=== PATIENT | male | born 1960 | race Caucasian/White ===

== ENCOUNTER 2018-09-07 08:40 | Day surgery (SDC) | payer BC ==
[2018-09-04 08:42] VITALS: BMI 28.2
[~2018-09-07 08:40] MED LIST: LACTATED RINGERS 1,000 ML IV SCH; LIDOCAINE 1% 20 ML VIAL (10MG/ML) FOR IV START INTRADERMA PRN; MIDAZOLAM 2 MG/2 ML VIAL IV PRN
[2018-09-07 09:05] VITALS: RESP 16; TEMP 97.6
[2018-09-07] MEDS ORDERED: LIDOCAINE 1% INJ 10MG/ML (20 ML MDV) ONE (10:35)
[2018-09-07] MEDS ORDERED: PROPOFOL 10 MG/ML 20 ML VIAL IV ONE (10:35)
--- NOTE | 2018-09-07 11:16 | P.PCN ---
Date of Procedure: 09/07/18 Procedure(s) Performed: Procedure: Total colonoscopy. Preoperative diagnosis: Screening for neoplasia. Postoperative diagnosis: 1. Sigmoid diverticulosis with no evidence of acute diverticulitis or strictures. 2. No polyps or tumors seen. 3. Low-grade internal hemorrhoids not bleeding at the time of this exam. Preparation: HalfLytely prep. Sedation: Was provided by anesthesia. Brief clinical history: The patient is a 58-year-old male who is scheduled for this evaluation for screening for neoplasia. He had a prior exam in 2012. The patient has no abdominal complaints or anemia. He did have an episode of constipation and bleeding per rectum within the last month. Procedure: With the patient on his left lateral decubitus position and after informed consent and adequate sedation, the perianal area was inspected and it did not show any fissures or fistulas. There were no masses felt on digital rectal examination. The Olympus CFQ 160L video colonoscope was then inserted in the rectum in the usual fashion and advanced to the cecum. There were a few scattered diverticular orifices in the sigmoid but I saw no evidence of acute diverticulitis or strictures. I retroflexed the endoscope in the rectum before the endoscope was withdrawn. Low-grade internal hemorrhoids were noted but there was no evidence of bleeding. The patient tolerated the procedure well. Plan: The patient was reassured. Discussed dietary measures and local care for hemorrhoids. He will follow up with you as planned. Repeat colonoscopy in 10 years.
[2018-09-07 11:22] VITALS: BP 112/65; PULSE 59
--- NOTE | 2018-09-09 13:53 | CDI ---
Outpatient Documentation Clarification Form Date: 09/09/18 CDS/Land Title Examiner Name: Paulina Lopez Phone: If any questions, call Anitha Landon Stained Glass Window Designer at [phone] Patient Name: Ramón Ventura Admit Date: 09/07/18 Discharge Date: 09/07/18 ATTENTION: The [facility] Coding Staff appreciate your assistance in clarifying documentation. Please respond to the clarification below the line at the bottom and electronically sign. The [facility] Coding staff will review the response and follow-up if needed. Please note: Queries are made part of the Legal Health Record. If you have any questions, please contact the Stained Glass Window Designer. Dear Dr. Clark, What is the source of the rectal bleed? Multiple coding resources, that we are required to follow, state that the physician should identify a source and the ship boss may not assume. Thank you for your kind consideration. MTDD
== END 2018-09-07 11:47 | disposition home or self-care (01) ==
LOC: ORWHC2ENDO 08:40
DX: K62.5 Hemorrhage of anus and rectum (principal); K57.30 Diverticulosis of large intestine without perforation or abscess without bleeding; K64.8 Other hemorrhoids; K21.9 Gastro-esophageal reflux disease without esophagitis; M19.90 Unspecified osteoarthritis, unspecified site; I49.3 Ventricular premature depolarization; Z91.030 Bee allergy status; Z87.891 Personal history of nicotine dependence
CPT/HCPCS: 45378; J2001; J2704

== ENCOUNTER 2018-11-14 08:38 | Inpatient (IN) | payer BC ==
[2018-11-14] MEDS ORDERED: SODIUM CHLORIDE 0.9% 1,000 ML IV STA (11:15)
[2018-11-14] MEDS ORDERED: MORPHINE SULFATE 4 MG/ML SYRINGE IV STA (11:15)
[2018-11-14 11:56] LABS: Basophils % (A) 0 %; Eosinophils # (A) 0.2 k/uL (0-0.7); Eosinophils % (A) 1 %; HGB 16.2 gm/dL (13.0-17.5); Lymphocytes # (A) 1.3 k/uL (1.0-4.8); Lymphocytes % (A) 9 %; MCH 30.1 pg (25.0-35.0); MCV 91.2 fL (80.0-100.0); Mean Platelet Volume 7.2; Monocytes % (A) 7 %; Neutrophils # (A) 11.4 k/uL (1.3-7.7); Neutrophils % (A) 82 %; Platelet Count 193 k/uL (150-450); RBC 5.37 m/uL (4.30-5.90)
[2018-11-14 12:02] LABS: Albumin 4.5 g/dL (3.5-5.0); Calcium 9.5 mg/dL (8.4-10.2); Potassium 4.3 mmol/L (3.5-5.1); Total Bilirubin 1.4 mg/dL (0.2-1.3); Total Protein 7.8 g/dL (6.3-8.2)
[2018-11-14 12:06] LABS: Creatine Kinase 406 U/L (55-170)
--- NOTE | 2018-11-14 12:13 | ED ---
Abdominal Pain HPI - General Chief Complaint: Abdominal Pain Stated Complaint: Flank pain Time Seen by Provider: 11/14/18 10:56 Source: patient, RN notes reviewed, old records reviewed Mode of arrival: ambulatory Limitations: no limitations - History of Present Illness Initial Comments: This is a 50-year-old male the ER with multiple complaints. Patient complains of a couple episodes of fatigue and shortness of breath that occurred over the last 3 days, patient also states was doing some activities yesterday he began to have some severe abdominal pain. The bowel pain appears to be left-sided and left lower quadrant. Patient also admits to diarrhea no fevers no vomiting. No sick contacts or recent travel history no similar history of the same. Patient has had his gallbladder removed prior. Denies current chest pain no recent fevers cough or congestion MD Complaint: abdominal pain (Left lower quadrant) -: days(s) (2) Location: epigastric Radiation: LLQ Migration to: no migration Severity: moderate Severity scale (1-10): 6 Quality: fullness, sharp Consistency: constant, intermittent Improves With: nothing Worsens With: movement Associated Symptoms: nausea Treatments Prior to Arrival: other - Related Data Home Medications Medication Instructions Recorded Confirmed Flecainide [Tambocor] 50 mg PO TID 09/04/18 11/14/18 Ranitidine HCl [Zantac] 150 mg PO BID 09/04/18 11/14/18 Metoprolol Succinate (ER) [Toprol 12.5 mg PO BID 11/14/18 11/14/18 Xl] Allergies Allergy/AdvReac Type Severity Reaction Status Date / Time bee venom protein (honey bee) Allergy Severe Anaphylaxis Verified 11/14/18 15:31 Review of Systems ROS Statement: Those systems with pertinent positive or pertinent negative responses have been documented in the HPI. ROS Other: All systems not noted in ROS Statement are negative. Past Medical History Past Medical History: GERD/Reflux, Osteoarthritis (OA) Additional Past Medical History / Comment(s): ARRYTHMIA- PVC'S, DIARRHEA. History of Any Multi-Drug Resistant Organisms: None Reported Past Surgical History: Cholecystectomy, Joint Replacement, Orthopedic Surgery, Tonsillectomy Additional Past Surgical History / Comment(s): Lt total knee ,Rt rotator cuff repair. Past Anesthesia/Blood Transfusion Reactions: No Reported Reaction Past Psychological History: No Psychological Hx Reported Smoking Status: Former smoker Past Alcohol Use History: Rare Past Drug Use History: None Reported - Past Family History Mother Family Medical History: Cancer, Coronary Artery Disease (CAD) Additional Family Medical History / Comment(s): uterine Father Family Medical History: Cancer, Coronary Artery Disease (CAD), Deep Vein Thrombosis (DVT) Additional Family Medical History / Comment(s): testicular General Exam Limitations: no limitations General appearance: alert, in no apparent distress Head exam: Present: atraumatic, normocephalic, normal inspection Eye exam: Present: normal appearance, PERRL, EOMI. Absent: scleral icterus, conjunctival injection, periorbital swelling ENT exam: Present: normal exam, mucous membranes moist Neck exam: Present: normal inspection. Absent: tenderness, meningismus, lymphadenopathy Respiratory exam: Present: normal lung sounds bilaterally. Absent: respiratory distress, wheezes, rales, rhonchi, stridor Cardiovascular Exam: Present: regular rate, normal rhythm, normal heart sounds. Absent: systolic murmur, diastolic murmur, rubs, gallop, clicks GI/Abdominal exam: Present: soft, tenderness (Diffuse epigastric and periumbilical tenderness left lower quadrant tender to palpation), normal bowel sounds. Absent: distended, guarding, rebound, rigid Extremities exam: Present: normal inspection, full ROM, normal capillary refill. Absent: tenderness, pedal edema, joint swelling, calf tenderness Back exam: Present: normal inspection Neurological exam: Present: alert, oriented X3, CN II-XII intact Psychiatric exam: Present: normal affect, normal mood Skin exam: Present: warm, dry, intact, normal color. Absent: rash Course Vital Signs 11/14/18 11/14/18 11/14/18 08:47 11:40 11:50 Temperature 98.0 F Pulse Rate 89 86 83 Respiratory 20 20 20 Rate Blood Pressure 128/85 O2 Sat by Pulse 100 95 95 Oximetry 11/14/18 11/14/18 11/14/18 12:00 12:10 12:20 Temperature Pulse Rate 83 82 85 Respiratory 19 20 20 Rate Blood Pressure O2 Sat by Pulse 96 96 96 Oximetry 11/14/18 11/14/18 11/14/18 12:30 13:13 14:58 Temperature 100.3 F H Pulse Rate 83 90 87 Respiratory 20 18 18 Rate Blood Pressure 141/84 134/87 O2 Sat by Pulse 96 100 100 Oximetry - Reevaluation(s) Reevaluation #1: 11/14/18 12:12 Medical record is reviewed Reevaluation #2: 11/14/18 12:13 Patient is a better pain control currently Reevaluation #3: Spoke with Dr. Ian Tucker for Dr. Boyer for Dr. he regarding admission with Medical Decision Making - Medical Decision Making 50-year-old male the ER for evaluation presents today for evaluation regards to abdominal pain. Positive diverticulitis, will admit for IV antibiotics and IV hydration, nothing by mouth. - Lab Data Result diagrams: 11/14/18 11:35 11/14/18 11:35 Lab Results 11/14/18 11/14/18 11/14/18 Range/Units 11:35 11:35 11:35 WBC 14.0 H (3.8-10.6) k/uL RBC 5.37 (4.30-5.90) m/uL Hgb 16.2 (13.0-17.5) gm/dL Hct 49.0 (39.0-53.0) % MCV 91.2 (80.0-100.0) fL MCH 30.1 (25.0-35.0) pg MCHC 33.0 (31.0-37.0) g/dL RDW 13.0 (11.5-15.5) % Plt Count 193 (150-450) k/uL Neutrophils % 82 % Lymphocytes % 9 % Monocytes % 7 % Eosinophils % 1 % Basophils % 0 % Neutrophils # 11.4 H (1.3-7.7) k/uL Lymphocytes # 1.3 (1.0-4.8) k/uL Monocytes # 1.0 (0-1.0) k/uL Eosinophils # 0.2 (0-0.7) k/uL Basophils # 0.0 (0-0.2) k/uL Sodium 139 (137-145) mmol/L Potassium 4.3 (3.5-5.1) mmol/L Chloride 104 (98-107) mmol/L Carbon Dioxide 26 (22-30) mmol/L Anion Gap 9 mmol/L BUN 13 (9-20) mg/dL Creatinine 1.21 (0.66-1.25) mg/dL Est GFR (CKD-EPI)AfAm 76 (>60 ml/min/1.73 sqM) Est GFR (CKD-EPI)NonAf 66 (>60 ml/min/1.73 sqM) Glucose 115 H (74-99) mg/dL Calcium 9.5 (8.4-10.2) mg/dL Total Bilirubin 1.4 H (0.2-1.3) mg/dL AST 90 H (17-59) U/L ALT 129 H (21-72) U/L Alkaline Phosphatase 129 H (38-126) U/L Total Creatine Kinase 406 H (55-170) U/L CK-MB (CK-2) 4.9 H (0.0-2.4) ng/mL CK-MB (CK-2) Rel Index 1.2 Troponin I <0.012 (0.000-0.034) ng/mL Total Protein 7.8 (6.3-8.2) g/dL Albumin 4.5 (3.5-5.0) g/dL Amylase 53 (30-110) U/L Lipase 37 (23-300) U/L Urine Color Urine Appearance (Clear) Urine pH (5.0-8.0) Ur Specific [place] (1.001-1.035) Urine Protein (Negative) Urine Glucose (UA) (Negative) Urine Ketones (Negative) Urine Blood (Negative) Urine Nitrite (Negative) Urine Bilirubin (Negative) Urine Urobilinogen (<2.0) mg/dL Ur Leukocyte Esterase (Negative) 11/14/18 Range/Units 11:35 WBC (3.8-10.6) k/uL RBC (4.30-5.90) m/uL Hgb (13.0-17.5) gm/dL Hct (39.0-53.0) % MCV (80.0-100.0) fL MCH (25.0-35.0) pg MCHC (31.0-37.0) g/dL RDW (11.5-15.5) % Plt Count (150-450) k/uL Neutrophils % % Lymphocytes % % Monocytes % % Eosinophils % % Basophils % % Neutrophils # (1.3-7.7) k/uL Lymphocytes # (1.0-4.8) k/uL Monocytes # (0-1.0) k/uL Eosinophils # (0-0.7) k/uL Basophils # (0-0.2) k/uL Sodium (137-145) mmol/L Potassium (3.5-5.1) mmol/L Chloride (98-107) mmol/L Carbon Dioxide (22-30) mmol/L Anion Gap mmol/L BUN (9-20) mg/dL Creatinine (0.66-1.25) mg/dL Est GFR (CKD-EPI)AfAm (>60 ml/min/1.73 sqM) Est GFR (CKD-EPI)NonAf (>60 ml/min/1.73 sqM) Glucose (74-99) mg/dL Calcium (8.4-10.2) mg/dL Total Bilirubin (0.2-1.3) mg/dL AST (17-59) U/L ALT (21-72) U/L Alkaline Phosphatase (38-126) U/L Total Creatine Kinase (55-170) U/L CK-MB (CK-2) (0.0-2.4) ng/mL CK-MB (CK-2) Rel Index Troponin I (0.000-0.034) ng/mL Total Protein (6.3-8.2) g/dL Albumin (3.5-5.0) g/dL Amylase (30-110) U/L Lipase (23-300) U/L Urine Color Yellow Urine Appearance Clear (Clear) Urine pH 6.0 (5.0-8.0) Ur Specific [place] 1.016 (1.001-1.035) Urine Protein Negative (Negative) Urine Glucose (UA) Negative (Negative) Urine Ketones Negative (Negative) Urine Blood Negative (Negative) Urine Nitrite Negative (Negative) Urine Bilirubin Negative (Negative) Urine Urobilinogen 2.0 (<2.0) mg/dL Ur Leukocyte Esterase Negative (Negative) - Radiology Data Radiology results: report reviewed (CT head and pelvis positive for diverticulitis), image reviewed Disposition Clinical Impression: Diverticulitis, Abdominal pain Disposition: ADMITTED IP TO THIS [facility] Condition: Good Is patient prescribed a controlled substance at d/c from ED?: No
[2018-11-14 12:15] LABS: Appearance,Urine Clear (Clear); Bilirubin,Urine Negative (Negative); Blood,Urine Negative (Negative); Color,Urine Yellow; Glucose,Urine (UA) Negative (Negative); Ketones,Urine Negative (Negative); Leukocyte Esterase,Urine Negative (Negative); Nitrite,Urine Negative (Negative); Protein,Urine Negative (Negative); Specific Gravity,Urine 1.016 (1.001-1.035)
[2018-11-14 12:18] LABS: Creatine Kinase MB 4.9 ng/mL (0.0-2.4); Troponin I <0.012 ng/mL (0.000-0.034)
[2018-11-14] MEDS ORDERED: MORPHINE SULFATE 4 MG/ML SYRINGE IVP STA (13:09)
--- NOTE | 2018-11-14 13:39 | CT ---
EXAMINATION TYPE: CT abdomen pelvis w con DATE OF EXAM: 11/14/2018 COMPARISON: None INDICATION: left side abd pain DLP: 1039.9 mGycm, Automated exposure control for dose reduction was used. CONTRAST: 100 mL of Isovue 300. Study performed without Oral Contrast TECHNIQUE: Axial images were obtained from above the diaphragm to the pubic rami in the axial plane a t 5 mm thick sections. Reconstructed images are reviewed on the computer in the coronal plane. FINDINGS: Limited CT sections are obtained the lung bases. The lung bases are clear. CT ABDOMEN: Liver: There appear to be a group of cysts within the peripheral right lobe liver. This could be conf irmed with ultrasound. Spleen: Normal Pancreas: Normal Adrenal glands: The adrenal glands are normal. Gallbladder: Surgically absent Kidneys: No masses are evident. No hydronephrosis is present. No cysts are present. Delayed images were obtained through the kidneys, which remain unremarkable. Aorta: Vascular calcification is within the aorta. Inferior vena cava: Normal. CT PELVIS: There are inflammatory changes adjacent to the descending colon. There are scattered diverticuli evid ent. There is a collection of air adjacent to the colon within the dependent portion is felt to most likely be a diverticulum. Loculated free air may be present at this location. Series 201, image 56. H owever, no free air is evident elsewhere within the abdomen. Study is performed without oral contrast causing some limitation of the bowel evaluation. Small bowel loops appear nondilated. Remainder of the colon appears normal. There are scattered diverticuli with in the sigmoid colon without additional areas suspicious for acute diverticulitis. Appendix: Normal as visualized. Urinary bladder: Normal. Genitourinary structures: Prostate appears normal. Osseous structures: No suspicious lytic or sclerotic lesions. Spondylolysis of L5 is evident. IMPRESSIONS: 1. Findings compatible with acute diverticulitis of the mid descending colon. 2. Air-containing diverticulum versus minimal loculated free air adjacent to the dependent portion of the colon is present on a single axial image. 3. No abscess formation evident at this time. Free air within the abdomen is not otherwise identified . 4. Suspected cysts within the liver. This could be confirmed with ultrasound
[2018-11-14] MEDS ORDERED: metroNIDAZOLE-NS PMX 500 MG in SALINE 1 100ML.BAG IVPB STA (14:30)
[2018-11-14] MEDS ORDERED: LEVOFLOXACIN 750MG-D5W PMX 750 MG in DEXTROSE/WATER 1 150ML.BAG IVPB STA (14:30)
[2018-11-14] MEDS ORDERED: SODIUM CHLORIDE 0.9% 1,000 ML IV ONE (14:30)
[2018-11-14] MEDS ORDERED: PANTOPRAZOLE 40 MG/10 ML VIAL IVP STA (14:30)
[2018-11-14 15:31] VITALS: BMI 27.8
[2018-11-14 15:39] VITALS: RESP 16
[2018-11-14] MEDS ORDERED: ONDANSETRON 4 MG/2 ML VIAL IVP PRN (16:21)
[2018-11-14] MEDS: MORPHINE SULFATE 4 MG/ML SYRINGE IVP PRN ×2 (16:53→20:47)
[2018-11-14] MEDS: METOPROLOL SUCCINATE (ER) 25 MG TAB.ER.24H PO SCH (16:53)
[2018-11-14] MEDS: PANTOPRAZOLE 40 MG TABLET PO SCH (16:53)
[2018-11-14] MEDS: ACETAMINOPHEN TAB 500 MG TAB PO PRN (19:50)
--- NOTE | 2018-11-14 21:44 | P.HPIM ---
History of Present Illness H&P Date: 11/14/18 Chief Complaint: Abdominal pain for last 2-3 days 58-year-old male who has some respiratory complaints. Days ago however resolved but however continued to have abdominal discomfort and pain predominantly on the left side also has some loose bowel movement as well, with those problem patient presented emergency department was seen eval reexamined now being admitted into the hospital, a computed tomography scan of the abdomen pelvis is positive for acute diverticulitis of mid descending colon, air containing diverticulum has been noted with loculated free air and dependent portion of the colon no abscess formation was seen no other free air has been noted some cyst in the liver noted as well Review of Systems All systems: negative Past Medical History Past Medical History: GERD/Reflux, Osteoarthritis (OA) Additional Past Medical History / Comment(s): ARRYTHMIA- PVC'S, DIARRHEA. History of Any Multi-Drug Resistant Organisms: None Reported Past Surgical History: Cholecystectomy, Joint Replacement, Orthopedic Surgery, Tonsillectomy Additional Past Surgical History / Comment(s): Lt total knee ,Rt rotator cuff repair. Past Anesthesia/Blood Transfusion Reactions: No Reported Reaction Past Psychological History: No Psychological Hx Reported Smoking Status: Former smoker Past Alcohol Use History: Rare Past Drug Use History: None Reported - Past Family History Mother Family Medical History: Cancer, Coronary Artery Disease (CAD) Additional Family Medical History / Comment(s): uterine Father Family Medical History: Cancer, Coronary Artery Disease (CAD), Deep Vein Thrombosis (DVT) Additional Family Medical History / Comment(s): testicular Medications and Allergies Home Medications Medication Instructions Recorded Confirmed Type Flecainide [Tambocor] 50 mg PO TID 09/04/18 11/14/18 History Ranitidine HCl [Zantac] 150 mg PO BID 09/04/18 11/14/18 History Metoprolol Succinate (ER) [Toprol 12.5 mg PO BID 11/14/18 11/14/18 History Xl] Allergies Allergy/AdvReac Type Severity Reaction Status Date / Time bee venom protein (honey bee) Allergy Severe Anaphylaxis Verified 11/14/18 15:31 Physical Exam Vitals: Vital Signs Temp Pulse Pulse Resp BP BP Pulse Ox 11/14/18 18:50 100.3 F H 87 16 111/68 94 L 11/14/18 15:38 99.4 F 90 16 131/87 95 11/14/18 14:58 100.3 F H 87 18 134/87 100 11/14/18 13:13 90 18 141/84 100 11/14/18 12:30 83 20 96 11/14/18 12:20 85 20 96 11/14/18 12:10 82 20 96 11/14/18 12:00 83 19 96 11/14/18 11:50 83 20 95 11/14/18 11:40 86 20 95 11/14/18 08:47 98.0 F 89 20 128/85 100 Intake and Output 11/14/18 11/14/18 11/14/18 06:59 14:59 22:59 Other: Weight 90.718 kg 90.718 kg - Constitutional General appearance: average body habitus, cooperative, disheveled, no acute distress - EENT Eyes: EOMI, poor dentition, normal appearance ENT: normal oropharynx Ears: bilateral: normal - Neck Neck: normal ROM Carotids: bilateral: upstroke normal, bruit absent Thyroid: bilateral: normal size - Respiratory Respiratory: bilateral: CTA - Cardiovascular Rhythm: regular Heart sounds: normal: S1, S2 - Gastrointestinal Some tenderness is noted on the left side no rebound tenderness has been seen or noted good bowel sounds are present General gastrointestinal: decreased bowel sounds - Integumentary Integumentary: normal turgor - Neurologic Neurologic: CNII-XII intact - Musculoskeletal Musculoskeletal: gait normal, generalized weakness, strength equal bilaterally - Psychiatric Psychiatric: A&O x's 3, appropriate affect, intact judgment & insight Results CBC & Chem 7: 11/14/18 11:35 11/14/18 11:35 Labs: Abnormal Lab Results - Last 24 Hours (Table) 11/14/18 11/14/18 11/14/18 Range/Units 11:35 11:35 11:35 WBC 14.0 H (3.8-10.6) k/uL Neutrophils # 11.4 H (1.3-7.7) k/uL Glucose 115 H (74-99) mg/dL Total Bilirubin 1.4 H (0.2-1.3) mg/dL AST 90 H (17-59) U/L ALT 129 H (21-72) U/L Alkaline Phosphatase 129 H (38-126) U/L Total Creatine Kinase 406 H (55-170) U/L CK-MB (CK-2) 4.9 H (0.0-2.4) ng/mL Microbiology - Last 24 Hours (Table) 11/14/18 11:35 Urine Culture - Preliminary Urine,Voided CT scan - abdomen: report reviewed, image reviewed (Finding as noted above) Thrombosis Risk Factor Assmnt - Choose All That Apply Any of the Below Risk Factors Present?: Yes Each Factor Represents 1 point: Age 41-60 years Other Risk Factors: No Other congenital or acquired thrombophilia - If yes, enter type in comment: No Thrombosis Risk Factor Assessment Total Risk Factor Score: 1 Thrombosis Risk Factor Assessment Level: Low Risk Assessment and Plan Assessment: Acute diverticulitis Possible bowel perforation will self healing and closure Sirs-like process Elevated liver enzymes Leukocytosis Hypertension History of arrhythmia in the past Plan: Gentle rehydration Keep nothing by mouth for now except meds Consult general surgery for acute diverticulitis and sealed perforation Consult GI services for elevated liver enzyme Broad-spectrum antibiotics Further recommendations pending plan of care as per clinical response of the patient Repeat labs tomorrow Time with Patient: Greater than 30
[2018-11-14] MEDS: FLECAINIDE 50 MG TAB PO SCH (22:54)
[2018-11-15] MEDS: metroNIDAZOLE-NS PMX 500 MG in SALINE 1 100ML.BAG IVPB SCH ×4 (00:05→23:19)
[2018-11-15] MEDS: MORPHINE SULFATE 4 MG/ML SYRINGE IVP PRN ×5 (01:32→20:22)
[2018-11-15 07:02] LABS: Basophils % (A) 0 %; Eosinophils % (A) 0 %; HCT 41.8 % (39.0-53.0); HGB 14.2 gm/dL (13.0-17.5); Lymphocytes # (A) 1.7 k/uL (1.0-4.8); Lymphocytes % (A) 13 %; MCH 31.3 pg (25.0-35.0); MCV 92.1 fL (80.0-100.0); Mean Platelet Volume 7.1; Monocytes % (A) 7 %; Neutrophils # (A) 10.8 k/uL (1.3-7.7); Neutrophils % (A) 78 %; Platelet Count 161 k/uL (150-450); RBC 4.54 m/uL (4.30-5.90); RDW 13.1 % (11.5-15.5); WBC 13.8 k/uL (3.8-10.6)
[2018-11-15 07:14] LABS: Albumin 3.4 g/dL (3.5-5.0); Calcium 8.8 mg/dL (8.4-10.2); Potassium 3.9 mmol/L (3.5-5.1); Total Bilirubin 1.9 mg/dL (0.2-1.3); Total Protein 6.1 g/dL (6.3-8.2)
[2018-11-15] MEDS: METOPROLOL SUCCINATE (ER) 25 MG TAB.ER.24H PO SCH ×2 (08:12→22:24)
[2018-11-15] MEDS: PANTOPRAZOLE 40 MG TABLET PO SCH ×2 (08:12→20:22)
[2018-11-15] MEDS: FLECAINIDE 50 MG TAB PO SCH ×3 (08:13→20:22)
[2018-11-15] MEDS ORDERED: PANTOPRAZOLE 40 MG/10 ML VIAL IVP SCH (09:00)
[2018-11-15] MEDS: ACETAMINOPHEN TAB 500 MG TAB PO PRN (10:30)
--- NOTE | 2018-11-15 13:26 | P.GSCN ---
History of Present Illness Consult date: 11/15/18 History of present illness: CHIEF COMPLAINT: Sigmoid diverticulitis HISTORY OF PRESENT ILLNESS: The patient is a 58-year-old male who presents with history of left lower quadrant abdominal pain from diverticulitis. He was admitted yesterday as result of his diverticulitis having moderate to severe pain. Last colonoscopy was [address] Clark August 2018 with features of sigmoid diverticulosis. He reports that he was unaware of sigmoid diverticulosis. He has a strong family history of diverticulosis in his brother include his mother. This is first episode of abdominal pain. He reports his bowel movements has been mostly constipation since discontinued tobacco use 6 months ago. His abdominal pain has improved since admission. He has not been started on liquid diet. PAST MEDICAL HISTORY: Please see list PAST SURGICAL HISTORY: Please see list MEDICATIONS: Please see list ALLERGIES: Please see list SOCIAL HISTORY: No illicit drug use or recent tobacco use. Quit 6 months ago. FAMILY HISTORY: Sigmoid diverticulosis in brother and mother. REVIEW OF ORGAN SYSTEMS: CONSTITUTIONAL: No reports of fevers or chills. HEENT: Denies any troubles with the vision or hearing. ENDOCRINE: No reports of hypothyroidism. No diabetes. RESPIRATORY: No recent pneumonias. CARDIOVASCULAR: Denies chest pain or palpitations. History of heart arrhythmias. GI: No blood in stools or constipation. Gastroesophageal reflux disease. Recent diagnosis of diverticulitis with colonoscopy August 2018 MUSCULOSKELETAL: Has occasional joint pain including back pain. NEURO: No seizure disorders or headaches. No recent stroke. PSYCH: No depression or suicidal ideation. HEMATOLOGIC: No personal or family history of DVTs or pulmonary emboli. SKIN: No skin cancer. No rash. PHYSICAL EXAM: VITAL SIGNS: Reviewed GENERAL: Well-developed pleasant male in no acute distress. HEENT: No scleral icterus. Extraocular movements grossly intact. Moist buccal mucosa. NECK: Supple without lymphadenopathy. CHEST: Unlabored respirations. Equal bilateral excursions. CARDIOVASCULAR: Regular rate regular rhythm rhythm. Distal 2+ pulses. ABDOMEN: Soft, nondistended. Tender along the left lower quadrant. No peritonitis. MUSCULOSKELETAL: No clubbing, cyanosis, or edema. NEURO : No focal or lateralizing signs. Cranial nerves II-12 within normal limits. PSYCH: Alert and oriented to person, place and time. SKIN: Well perfused. Good skin turgor. ASSESSMENT: 1. Sigmoid diverticulitis. 2. Elevated liver enzymes. PLAN: 1. Recommend IV antibiotics. 2. Recommend dietary consult for diverticulosis diet 3. Low residue diet with liquids for one week. 4. May need ultrasound for history of elevated liver enzymes pending clinical course Past Medical History Past Medical History: GERD/Reflux, Osteoarthritis (OA) Additional Past Medical History / Comment(s): ARRYTHMIA- PVC'S, DIARRHEA. History of Any Multi-Drug Resistant Organisms: None Reported Past Surgical History: Cholecystectomy, Joint Replacement, Orthopedic Surgery, Tonsillectomy Additional Past Surgical History / Comment(s): Lt total knee ,Rt rotator cuff repair. Past Anesthesia/Blood Transfusion Reactions: No Reported Reaction Past Psychological History: No Psychological Hx Reported Smoking Status: Former smoker Past Alcohol Use History: Rare Past Drug Use History: None Reported - Past Family History Mother Family Medical History: Cancer, Coronary Artery Disease (CAD) Additional Family Medical History / Comment(s): uterine Father Family Medical History: Cancer, Coronary Artery Disease (CAD), Deep Vein Thrombosis (DVT) Additional Family Medical History / Comment(s): testicular Medications and Allergies Home Medications Medication Instructions Recorded Confirmed Type Flecainide [Tambocor] 50 mg PO TID 09/04/18 11/14/18 History Ranitidine HCl [Zantac] 150 mg PO BID 09/04/18 11/14/18 History Metoprolol Succinate (ER) [Toprol 12.5 mg PO BID 11/14/18 11/14/18 History Xl] Allergies Allergy/AdvReac Type Severity Reaction Status Date / Time bee venom protein (honey bee) Allergy Severe Anaphylaxis Verified 11/14/18 15:31 Surgical - Exam Vital Signs Temp Pulse Resp BP Pulse Ox 98.0 F 89 20 128/85 100 11/14/18 08:47 11/14/18 08:47 11/14/18 08:47 11/14/18 08:47 11/14/18 08:47 Results - Labs 11/15/18 06:25 11/15/18 06:25 Abnormal Lab Results - Last 24 Hours (Table) 11/15/18 11/15/18 Range/Units 06:25 06:25 WBC 13.8 H (3.8-10.6) k/uL Neutrophils # 10.8 H (1.3-7.7) k/uL Glucose 109 H (74-99) mg/dL Total Bilirubin 1.9 H (0.2-1.3) mg/dL AST 74 H (17-59) U/L ALT 131 H (21-72) U/L Alkaline Phosphatase 151 H (38-126) U/L Total Protein 6.1 L (6.3-8.2) g/dL Albumin 3.4 L (3.5-5.0) g/dL Microbiology - Last 24 Hours (Table) 11/14/18 11:35 Urine Culture - Final Urine,Voided Diabetes panel 11/15/18 Range/Units 06:25 Sodium 139 (137-145) mmol/L Potassium 3.9 (3.5-5.1) mmol/L Chloride 106 (98-107) mmol/L Carbon Dioxide 23 (22-30) mmol/L BUN 11 (9-20) mg/dL Creatinine 1.12 (0.66-1.25) mg/dL Glucose 109 H (74-99) mg/dL Calcium 8.8 (8.4-10.2) mg/dL AST 74 H (17-59) U/L ALT 131 H (21-72) U/L Alkaline Phosphatase 151 H (38-126) U/L Total Protein 6.1 L (6.3-8.2) g/dL Albumin 3.4 L (3.5-5.0) g/dL Calcium panel 11/15/18 Range/Units 06:25 Calcium 8.8 (8.4-10.2) mg/dL Albumin 3.4 L (3.5-5.0) g/dL Pituitary panel 11/15/18 Range/Units 06:25 Sodium 139 (137-145) mmol/L Potassium 3.9 (3.5-5.1) mmol/L Chloride 106 (98-107) mmol/L Carbon Dioxide 23 (22-30) mmol/L BUN 11 (9-20) mg/dL Creatinine 1.12 (0.66-1.25) mg/dL Glucose 109 H (74-99) mg/dL Calcium 8.8 (8.4-10.2) mg/dL Adrenal panel 11/15/18 Range/Units 06:25 Sodium 139 (137-145) mmol/L Potassium 3.9 (3.5-5.1) mmol/L Chloride 106 (98-107) mmol/L Carbon Dioxide 23 (22-30) mmol/L BUN 11 (9-20) mg/dL Creatinine 1.12 (0.66-1.25) mg/dL Glucose 109 H (74-99) mg/dL Calcium 8.8 (8.4-10.2) mg/dL Total Bilirubin 1.9 H (0.2-1.3) mg/dL AST 74 H (17-59) U/L ALT 131 H (21-72) U/L Alkaline Phosphatase 151 H (38-126) U/L Total Protein 6.1 L (6.3-8.2) g/dL Albumin 3.4 L (3.5-5.0) g/dL - Imaging CT scan - abdomen: report reviewed, image reviewed CT scan - pelvis: report reviewed (Diverticulitis involving the descending colon and sigmoid colon is personally reviewed without free air), image reviewed Assessment and Plan (1) Elevated liver enzymes Current Visit: Yes Status: Acute Code(s): R74.8 - ABNORMAL LEVELS OF OTHER SERUM ENZYMES SNOMED Code(s): 658554005 (2) Abdominal pain Current Visit: Yes Status: Acute Code(s): R10.9 - UNSPECIFIED ABDOMINAL PAIN SNOMED Code(s): 63472855 (3) Diverticulitis Current Visit: Yes Status: Acute Code(s): K57.92 - DVTRCLI OF INTEST, PART UNSP, W/O PERF OR ABSCESS W/O BLEED SNOMED Code(s): 220742187
[2018-11-15] MEDS ORDERED: LEVOFLOXACIN 750MG-D5W PMX 750 MG in DEXTROSE/WATER 1 150ML.BAG IVPB SCH (15:00)
--- NOTE | 2018-11-15 18:15 | PN ---
PROGRESS NOTE DATE OF SERVICE: 10/19/2018 He has been hemodynamically stable. He has less abdominal pain. He has no hematemesis, no hematochezia, no melena. On physical examination respiratory rate is 16, pulse rate is 71, temperature 98.2, blood pressure 123/76, O2 saturation on room is 95%. HEENT is unremarkable. Chest reveals decreased breath sounds. Cardiovascular system reveals an S1, S2. Abdomen is soft. There is no tenderness. There is no pedal edema. Labs reveal white count of 13.8, hemoglobin of 14.2, sodium 139, potassium 3.9, chloride 106, bicarb 23, BUN 11, creatinine 1.12, bilirubin 1.9, AST 74, ALT 131, alkaline phosphatase 151, albumin 3.4. IMPRESSION: 1. Acute diverticulitis. 2. Elevated liver enzymes, etiology unclear. Continue IV fluids, metronidazole. Surgical input is appreciated. We will advance diet. Keep him on GI and DVT prophylaxis. Depending on how he does, he may require further workup and changes to his care. MMODL / MCKENNAN: [id number] /
--- NOTE | 2018-11-15 20:15 | P.CONS ---
History of Present Illness - Reason for Consult Consult date: 11/15/18 Elevated liver enzymes Requesting physician: Ian Tucker - Chief Complaint Abdominal pain - History of Present Illness The patient is a pleasant 58-year-old male with a past medical history significant for arrhythmias, GERD and osteoarthritis who presented to the hospital with complaints of abdominal pain. The patient reports severe lower abdominal pain worse in the left side of his abdomen. This had been present for approximately one day prior to presentation. The pain was constant and worse with activity. He denied any associated fevers, chills, nausea, vomiting but does report loose stool in association with the pain. On presentation to the hospital he was found to have a leukocytosis with a WBC count of 14. Computed tomography scan was significant for descending diverticulitis without evidence of free air or abscess. The patient was also found to have an elevation in his liver enzymes with a total bilirubin 1.9, alkaline phosphatase 151, AST 74 and ALT 131. The patient had a colonoscopy in 08/2018 for screening purposes which was significant for diverticulosis and mild internal hemorrhoids. Review of Systems REVIEW OF SYSTEMS: CARDIO: Denies any chest pain or palpitations. PULMONARY: Denies any shortness of breath or wheezing. GENITOURINARY: No dysuria or hematuria. MUSCULOSKELETAL: He did report some weakness and fatigue. SKIN: Denies any new rashes or lesions, jaundice or pallor. PSYCHIATRIC: Denies any depression or anxiety. NEUROLOGY: Denies headache, denies any new focal deficits. EARS: No tinnitus, discharge or new hearing loss. NOSE: No discharge or congestion. EYES: No pain in eyes or change in vision. CONSTITUTIONAL: No recent weight loss. No fever, chills, night sweats. Past Medical History Past Medical History: GERD/Reflux, Osteoarthritis (OA) Additional Past Medical History / Comment(s): ARRYTHMIA- PVC'S, DIARRHEA. History of Any Multi-Drug Resistant Organisms: None Reported Past Surgical History: Cholecystectomy, Joint Replacement, Orthopedic Surgery, Tonsillectomy Additional Past Surgical History / Comment(s): Lt total knee ,Rt rotator cuff repair. Past Anesthesia/Blood Transfusion Reactions: No Reported Reaction Past Psychological History: No Psychological Hx Reported Smoking Status: Former smoker Past Alcohol Use History: Rare Past Drug Use History: None Reported - Past Family History Mother Family Medical History: Cancer, Coronary Artery Disease (CAD) Additional Family Medical History / Comment(s): uterine Father Family Medical History: Cancer, Coronary Artery Disease (CAD), Deep Vein Thrombosis (DVT) Additional Family Medical History / Comment(s): testicular Medications and Allergies Home Medications Medication Instructions Recorded Confirmed Type Flecainide [Tambocor] 50 mg PO TID 09/04/18 11/14/18 History Ranitidine HCl [Zantac] 150 mg PO BID 09/04/18 11/14/18 History Metoprolol Succinate (ER) [Toprol 12.5 mg PO BID 11/14/18 11/14/18 History Xl] Allergies Allergy/AdvReac Type Severity Reaction Status Date / Time bee venom protein (honey bee) Allergy Severe Anaphylaxis Verified 11/14/18 15:31 Physical Exam Vitals: Vital Signs Temp Pulse Resp BP Pulse Ox 11/15/18 15:24 98.2 F 71 16 123/76 97 11/15/18 07:00 98.8 F 79 16 147/80 95 11/15/18 01:00 99.0 F 74 16 100/64 95 Intake and Output 11/15/18 11/15/18 11/15/18 06:59 14:59 22:59 Intake Total 1000 1500 Balance 1000 1500 Intake: IV 900 Sodium Chloride 0.9% 1, 800 000 ml @ 100 mls/hr IV . Q10H ONE Rx#:[id number] metroNIDAZOLE-NS PMX 500 100 mg In Saline 1 100ml.bag @ 100 mls/hr IVPB ONCE STA Rx#:[id number] Intake, IV Titration 1000 Amount Sodium Chloride 0.9% 1, 1000 000 ml @ 100 mls/hr IV . Q10H ONE Rx#:[id number] Oral 600 On physical examination, patient appears comfortable in no apparent distress. HEAD: Normocephalic, atraumatic. EYES: No scleral icterus. No conjunctival injection. MOUTH: No lesions, tongue midline. NECK: Trachea midline, no gross abnormalities. CHEST: Clear to auscultation with no wheezing or rhonchi appreciated. HEART: Regular rate and rhythm. ABDOMEN: Soft, the patient did have tenderness to palpation in the left lower quadrant of his abdomen. Bowel sounds are positive. No organomegaly. No guarding or rigidity. EXTREMITIES: No pedal edema. SKIN: No rashes, no jaundice. NEUROLOGIC: Alert and oriented x3. No focal deficits. Results CBC & Chem 7: 11/15/18 06:25 11/15/18 06:25 Labs: Abnormal Lab Results - Last 24 Hours (Table) 11/15/18 11/15/18 Range/Units 06:25 06:25 WBC 13.8 H (3.8-10.6) k/uL Neutrophils # 10.8 H (1.3-7.7) k/uL Glucose 109 H (74-99) mg/dL Total Bilirubin 1.9 H (0.2-1.3) mg/dL AST 74 H (17-59) U/L ALT 131 H (21-72) U/L Alkaline Phosphatase 151 H (38-126) U/L Total Protein 6.1 L (6.3-8.2) g/dL Albumin 3.4 L (3.5-5.0) g/dL Microbiology - Last 24 Hours (Table) 11/14/18 11:35 Urine Culture - Final Urine,Voided CT scan - abdomen: report reviewed (Computed tomography scan was significant for descending diverticulitis without evidence of free air or abscess. There were also suspicion of liver cysts.) Assessment and Plan (1) Elevated liver enzymes Narrative/Plan: Elevated liver enzymes of unknown etiology. Suggestion of liver cyst on CT of the abdomen. Viral hepatitis panel ordered with repeat liver enzymes as well as dedicated ultrasound of the liver for further evaluation. Current Visit: Yes Status: Acute Code(s): R74.8 - ABNORMAL LEVELS OF OTHER SERUM ENZYMES SNOMED Code(s): 056088289 (2) Abdominal pain Current Visit: Yes Status: Acute Code(s): R10.9 - UNSPECIFIED ABDOMINAL PAIN SNOMED Code(s): 54446751 (3) Diverticulitis Current Visit: Yes Status: Acute Code(s): K57.92 - DVTRCLI OF INTEST, PART UNSP, W/O PERF OR ABSCESS W/O BLEED SNOMED Code(s): 458353067 Plan: Supportive care Liquid diet initiated Pain control IV antibiotics for treatment of diverticulitis Repeat liver enzymes Viral hepatitis panel pending Ultrasound abdomen pending If liver enzymes remain elevated will initiate full liver serologies Thank you for allowing us to participate in the care of the patient we will continue to follow
[2018-11-15] MEDS: HEPARIN SODIUM,PORCINE 5,000 UNIT/ML 1 ML VIAL SQ SCH (20:22)
[2018-11-15] MEDS: FAMOTIDINE 20 MG TAB PO SCH (20:22)
[2018-11-16] MEDS: MORPHINE SULFATE 4 MG/ML SYRINGE IVP PRN (04:33)
[2018-11-16 07:11] LABS: Basophils % (A) 0 %; Eosinophils # (A) 0.1 k/uL (0-0.7); Eosinophils % (A) 1 %; HCT 39.5 % (39.0-53.0); HGB 12.9 gm/dL (13.0-17.5); Lymphocytes # (A) 1.5 k/uL (1.0-4.8); Lymphocytes % (A) 17 %; MCH 30.5 pg (25.0-35.0); MCHC 32.7 g/dL (31.0-37.0); MCV 93.1 fL (80.0-100.0); Mean Platelet Volume 7.3; Monocytes # (A) 0.7 k/uL (0-1.0); Monocytes % (A) 8 %; Neutrophils # (A) 6.2 k/uL (1.3-7.7); Neutrophils % (A) 72 %; Platelet Count 175 k/uL (150-450); RBC 4.24 m/uL (4.30-5.90); WBC 8.6 k/uL (3.8-10.6)
[2018-11-16 07:33] LABS: Albumin 3.1 g/dL (3.5-5.0); Bilirubin, Delta 0.2 mg/dL (0.0-0.2); Bilirubin,Unconjugated 0.6 mg/dL (0.0-1.1); Calcium 8.7 mg/dL (8.4-10.2); Potassium 3.9 mmol/L (3.5-5.1); Total Bilirubin 0.8 mg/dL (0.2-1.3); Total Protein 5.8 g/dL (6.3-8.2)
--- NOTE | 2018-11-16 08:28 | US ---
EXAMINATION TYPE: US abdomen limited DATE OF EXAM: 11/16/2018 COMPARISON: NONE CLINICAL HISTORY: elevated liver enzymes. EXAM MEASUREMENTS: Liver Length: 14.5 cm Gallbladder Wall: Surgically absent CBD: 0.3 cm Right Kidney: 10.6 x 5.6 x 5.3 cm Study done portable, patient has severe overlying bowel gas, technically difficult and limited study. Pancreas: Obscured by bowel gas Liver: There is increased echogenicity of the hepatic parenchyma with diminished visualization of th e portal triads most commonly relating to hepatic steatosis and limiting evaluation for underlying he patic masses. Gallbladder: Surgically absent Evidence for sonographic Parrish's sign: no CBD: very limited visualization, portion visualized wnl Right Kidney: wnl IMPRESSION: 1. Sonographic findings most commonly related to underlying hepatic steatosis. Correlate with liver f unction tests to evaluate for other hepatocellular disease. 2. Surgical absence of the gallbladder. 3. Obscuration of the pancreas.
[2018-11-16] MEDS: HEPARIN SODIUM,PORCINE 5,000 UNIT/ML 1 ML VIAL SQ SCH (09:05)
[2018-11-16] MEDS: metroNIDAZOLE-NS PMX 500 MG in SALINE 1 100ML.BAG IVPB SCH (09:05)
[2018-11-16] MEDS: FAMOTIDINE 20 MG TAB PO SCH (09:06)
[2018-11-16] MEDS: FLECAINIDE 50 MG TAB PO SCH ×2 (09:06→13:53)
[2018-11-16] MEDS: METOPROLOL SUCCINATE (ER) 25 MG TAB.ER.24H PO SCH (09:06)
[2018-11-16] MEDS: PANTOPRAZOLE 40 MG TABLET PO SCH (09:06)
--- NOTE | 2018-11-16 11:55 | P.PN ---
Subjective Progress Note Date: 11/16/18 Patient is a 58-year-old male who was admitted to [facility] due to abdominal pain and diarrhea, he was diagnosed with acute diverticulitis and elevated liver enzymes, he was admitted on 11/14/2018 he was seen by Dr. Ian Tucker on 11/14/[address] Neftaly Alvares who were covering for me during my vacation. Patient was seen and examined by myself on 11/16/2018 he is alert and oriented 3 in no apparent distress he states he is feeling better he is still complaining of pain in the left side of his abdomen especially in the left lower quadrant there is no nausea or vomiting no diarrhea no blood in the stool , patient denies any other complaints there is no fever or chills no headache no dizziness no chest pain no shortness of breath no cough and no urinary symptoms. Objective - Vital Signs Vital signs: Vital Signs Temp 97.8 F 11/16/18 08:23 Pulse 72 11/16/18 09:13 Resp 16 11/16/18 09:13 BP 112/71 11/16/18 08:23 Pulse Ox 96 11/16/18 08:23 Intake & Output 11/15/18 11/16/18 11/16/18 18:59 06:59 18:59 Intake Total 1500 2320 Balance 1500 2320 Intake: IV 900 1250 Sodium Chloride 0.9% 1, 800 000 ml @ 100 mls/hr IV . Q10H ONE Rx#:[id number] metroNIDAZOLE-NS PMX 500 100 mg In Saline 1 100ml.bag @ 100 mls/hr IVPB ONCE STA Rx#:[id number] normal saline @125ml/hr 1250 Oral 600 1070 Other: Voiding Method Toilet # Voids 2 1 - Exam In general patient is alert and oriented 3 in no apparent distress, very pleasant HEENT head normocephalic and atraumatic Neck is supple no JVD no goiter no lymphadenopathy Chest exam is clear to auscultation no crackles no wheezing Cardiac exam reveals regular heart sounds S1 and S2 no gallops no murmurs Abdomen is soft with mild tenderness in the left lower quadrant no organomegaly no palpable masses Extremity exam reveals no edema no cyanosis or clubbing Neurological examination reveals no gross focal deficit - Labs CBC & Chem 7: 11/16/18 06:41 11/16/18 06:41 Labs: Abnormal Lab Results - Last 24 Hours (Table) 11/16/18 11/16/18 Range/Units 06:41 06:41 RBC 4.24 L (4.30-5.90) m/uL Hgb 12.9 L (13.0-17.5) gm/dL Chloride 108 H (98-107) mmol/L ALT 86 H (21-72) U/L Alkaline Phosphatase 156 H (38-126) U/L Total Protein 5.8 L (6.3-8.2) g/dL Albumin 3.1 L (3.5-5.0) g/dL Microbiology - Last 24 Hours (Table) 11/14/18 11:35 Urine Culture - Final Urine,Voided Assessment and Plan Plan: #1 acute diverticulitis, currently maintained on IV antibiotic Levaquin and Flagyl will continue, patient is maintained on liquid diet will continue at this time and advance gradually patient states he is improving. White blood count is improving it was 14.0 on 11/14/2018 and down to 8.6 today. #2 elevated liver enzymes cause is unclear patient denies any history of alcohol use, he uses Tylenol rarely he denies ever having any IV drug use or any tattoos, hepatitis panel was ordered and is still pending. #3 history of cardiac arrhythmia in the past, maintained on Tambocor and metoprolol stable without any new symptoms continue current medications #4 4 DVT prophylaxis patient is maintained on subcu heparin for GI prophylaxis patient is maintained on Protonix continue Will follow closely GI and surgery input reviewed, patient is improving possible discharge in the next 2 days
[2018-11-16 12:13] LABS: Hepatitis A Antibody IgM Non-Reactive (Non-Reactive); Hepatitis B Core IgM Non-Reactive (Non-Reactive)
--- NOTE | 2018-11-16 14:17 | P.PN ---
Subjective Progress Note Date: 11/16/18 CHIEF COMPLAINT: Sigmoid diverticulitis HISTORY OF PRESENT ILLNESS: The patient is a 58-year-old male who presents with history of left lower quadrant abdominal pain from diverticulitis. Since admission, no reports of fevers or chills. White count is normal today. He responded well to antibiotics. Abdominal pain moderately improved from the time of admission including compared to yesterday. He is tolerating liquids. In fact, he is not requiring any pain medications today. He is passing flatus. PHYSICAL EXAM: VITAL SIGNS: Reviewed GENERAL: Well-developed pleasant male in no acute distress. HEENT: No scleral icterus. Extraocular movements grossly intact. Moist buccal mucosa. NECK: Supple without lymphadenopathy. CHEST: Unlabored respirations. Equal bilateral excursions. CARDIOVASCULAR: Regular rate regular rhythm rhythm. Distal 2+ pulses. ABDOMEN: Soft, nondistended. Decreased tenderness along the left lower quadrant. No peritonitis. MUSCULOSKELETAL: No clubbing, cyanosis, or edema. NEURO : No focal or lateralizing signs. Cranial nerves II-12 within normal limits. PSYCH: Alert and oriented to person, place and time. SKIN: Well perfused. Good skin turgor. ASSESSMENT: 1. Sigmoid diverticulitis. 2. Elevated liver enzymes. 3. Arrhythmia PLAN: 1. Liver enzymes model improved as well. 2. I spoke to the admitting team where patient is stable enough for discharge with immediate follow-up in 48 hours in my office. 3. Low eesident diet including avoiding dairy described. He may have soups and broth were described for at least the next 3 days. 4. Patient cleared for discharge from a surgical standpoint and also confirmed with medicine team. Objective - Vital Signs Vital signs: Vital Signs Temp 97.8 F 11/16/18 08:23 Pulse 72 11/16/18 09:13 Resp 16 11/16/18 09:13 BP 112/71 11/16/18 08:23 Pulse Ox 96 11/16/18 08:23 Intake & Output 11/15/18 11/16/18 11/16/18 18:59 06:59 18:59 Intake Total 1500 2320 Balance 1500 2320 Intake: IV 900 1250 Sodium Chloride 0.9% 1, 800 000 ml @ 100 mls/hr IV . Q10H ONE Rx#:[id number] metroNIDAZOLE-NS PMX 500 100 mg In Saline 1 100ml.bag @ 100 mls/hr IVPB ONCE STA Rx#:[id number] normal saline @125ml/hr 1250 Oral 600 1070 Other: Voiding Method Toilet # Voids 2 1 - Labs CBC & Chem 7: 11/16/18 06:41 11/16/18 06:41 Labs: Abnormal Lab Results - Last 24 Hours (Table) 11/16/18 11/16/18 Range/Units 06:41 06:41 RBC 4.24 L (4.30-5.90) m/uL Hgb 12.9 L (13.0-17.5) gm/dL Chloride 108 H (98-107) mmol/L ALT 86 H (21-72) U/L Alkaline Phosphatase 156 H (38-126) U/L Total Protein 5.8 L (6.3-8.2) g/dL Albumin 3.1 L (3.5-5.0) g/dL Microbiology - Last 24 Hours (Table) 11/14/18 11:35 Urine Culture - Final Urine,Voided Assessment and Plan (1) Elevated liver enzymes Current Visit: Yes Status: Acute Code(s): R74.8 - ABNORMAL LEVELS OF OTHER SERUM ENZYMES SNOMED Code(s): 549601309 (2) Abdominal pain Current Visit: Yes Status: Acute Code(s): R10.9 - UNSPECIFIED ABDOMINAL PAIN SNOMED Code(s): 55201285 (3) Diverticulitis Current Visit: Yes Status: Acute Code(s): K57.92 - DVTRCLI OF INTEST, PART UNSP, W/O PERF OR ABSCESS W/O BLEED SNOMED Code(s): 273414184
--- NOTE | 2018-11-16 14:58 | P.DS ---
Providers Date of admission: 11/14/18 14:34 Expected date of discharge: 11/16/18 Attending physician: Lance Caceres Consults: 11/14/18 21:35 Consult Physician Routine Consulting Provider: Marion Joya Consult Reason/Comments: diverticulitis Do you want consulting provider notified?: Yes, Notify in am 11/14/18 21:41 Consult Physician Routine Consulting Provider: Champ Cid Consult Reason/Comments: elevated liver enzyme Do you want consulting provider notified?: Yes, Notify in am Primary care physician: Leah Spencer [facility] Course: Discharge Diagnosis #1 acute diverticulitis, currently maintained on IV antibiotic Levaquin and Flagyl will continue, patient is maintained on liquid diet will continue at this time and advance gradually patient states he is improving. White blood count is improving it was 14.0 on 11/14/2018 and down to 8.6 today. patient has been cleared for D/C from surgical services. patient d/c on flagyl and cipro. f/ u with Dr. Ivey on 11/18/2017 #2 elevated liver enzymes cause is unclear patient denies any history of alcohol use, he uses Tylenol rarely he denies ever having any IV drug use or any tattoos, hepatitis panel was ordered and is still pending. #3 history of cardiac arrhythmia in the past, maintained on Tambocor and metoprolol stable without any new symptoms continue current medications Hospital CoursePatient is a 58-year-old male who was admitted to [facility] due to abdominal pain and diarrhea, he was diagnosed with acute diverticulitis and elevated liver enzymes, he was admitted on 11/14/2018 he was seen by Dr. Ian Tucker on 11/14/[address] Neftaly Alvares who were covering for me during my vacation. Patient was seen and examined by myself on 11/16/2018 he is alert and oriented 3 in no apparent distress he states he is feeling better he is still complaining of pain in the left side of his abdomen especially in the left lower quadrant there is no nausea or vomiting no diarrhea no blood in the stool , patient denies any other complaints there is no fever or chills no headache no dizziness no chest pain no shortness of breath no cough and no urinary symptoms. Patient has been cleared for D/C from surgical services. patient states he fill ready for d/c patient will be d/c on cipro and flagyl. Patient to follow up closely with consulting providers and PCP Patient Condition at Discharge: Good Plan - Discharge Summary New Discharge Prescriptions: New metroNIDAZOLE [Flagyl] 500 mg PO TID #30 tab Ibuprofen [Motrin] 600 mg PO Q8HR PRN #20 tab PRN Reason: Pain Ciprofloxacin HCl [Cipro] 500 mg PO Q12HR #20 tablet Continue Ranitidine HCl [Zantac] 150 mg PO BID Flecainide [Tambocor] 50 mg PO TID Metoprolol Succinate (ER) [Toprol XL] 12.5 mg PO BID Discharge Medication List Flecainide [Tambocor] 50 mg PO TID 09/04/18 [History] Ranitidine HCl [Zantac] 150 mg PO BID 09/04/18 [History] Metoprolol Succinate (ER) [Toprol XL] 12.5 mg PO BID 11/14/18 [History] Ciprofloxacin HCl [Cipro] 500 mg PO Q12HR #20 tablet 11/16/18 [Rx] Ibuprofen [Motrin] 600 mg PO Q8HR PRN #20 tab 11/16/18 [Rx] metroNIDAZOLE [Flagyl] 500 mg PO TID #30 tab 11/16/18 [Rx] Follow up Appointment(s)/Referral(s): Leah Spencer MD [Primary Care Provider] - 1-2 days Marion Joya MD [STAFF PHYSICIAN] - 11/18/18 12:00 pm Patient Instructions/Handouts: Diverticulitis (GEN), Low Fiber Diet (DC), Diverticulitis Diet (DC) Activity/Diet/Wound Care/Special Instructions: Low fiber diet for at least 1 week until abdominal pain is resolved. Discharge Disposition: HOME SELF-CARE
[2018-11-16] MEDS ORDERED: LEVOFLOXACIN 750 MG TAB PO SCH (15:00)
[2018-11-16 15:31] VITALS: BP 116/74; PULSE 71; TEMP 98.1
== END 2018-11-16 15:10 | disposition home or self-care (01) | DRG 392 ==
LOC: EC 08:38 → 4SSUR 14:34
PROVIDERS: ADMIT Internal Medicine; ATTEND Internal Medicine
DX: K57.32 Diverticulitis of large intestine without perforation or abscess without bleeding (principal); D72.829 Elevated white blood cell count, unspecified; I10 Essential (primary) hypertension; K21.9 Gastro-esophageal reflux disease without esophagitis; K59.00 Constipation, unspecified; K64.8 Other hemorrhoids; M19.90 Unspecified osteoarthritis, unspecified site; R74.8 Abnormal levels of other serum enzymes; Z79.899 Other long term (current) drug therapy; Z87.891 Personal history of nicotine dependence; Z91.030 Bee allergy status; Z90.49 Acquired absence of other specified parts of digestive tract; Z96.652 Presence of left artificial knee joint; Z80.9 Family history of malignant neoplasm, unspecified; Z83.79 Family history of other diseases of the digestive system; Z82.49 Family history of ischemic heart disease and other diseases of the circulatory system
CPT/HCPCS: 36415; 74177; 76705; 80053; 80074; 81003; 82150; 82248; 82550; 82553; 83690; 84484; 85025; 87086; 96361; 96374; 96375; 96376; 99285

== ENCOUNTER 2019-06-05 11:47 | Emergency (ER) | payer BC ==
[2019-06-05] MEDS ORDERED: KETOROLAC 30 MG/ML 1 ML VIAL IVP STA (12:26)
[2019-06-05] MEDS ORDERED: SODIUM CHLORIDE 0.9% 1,000 ML IV STA (12:26)
--- NOTE | 2019-06-05 12:30 | ED ---
Abdominal Pain HPI - General Chief Complaint: Abdominal Pain Stated Complaint: Diverticulitis Time Seen by Provider: 06/05/19 12:00 Source: patient, RN notes reviewed Mode of arrival: ambulatory Limitations: no limitations - History of Present Illness Initial Comments: This is a 59-year-old male who presents with complaints of the onset of abdominal pain 2 days ago states the pain started during Friday morning. States it yesterday he just had liquids pain is getting worse over achy occasionally sharp 7/10 severity at its worse is well 5/10 urinary urgency some left flank pain he's had chills with no fever pain is get worse with movement upright positioning and vibration from driving in a car. He states it feels similar to his previous episode of diverticulitis. No blood per rectum no other modifying factors MD Complaint: abdominal pain - Related Data Home Medications Medication Instructions Recorded Confirmed Flecainide [Tambocor] 50 mg PO TID 09/04/18 06/05/19 Ranitidine HCl [Zantac] 150 mg PO BID 09/04/18 06/05/19 Metoprolol Succinate (ER) [Toprol 12.5 mg PO BID 11/14/18 06/05/19 XL] Previous Rx's Medication Instructions Recorded Amoxicillin/Potassium Clav 1 tab PO Q12HR #20 tab 06/05/19 [Augmentin 875-125 Tablet] Ibuprofen 800 mg PO Q6HR PRN #20 tablet 06/05/19 Allergies Allergy/AdvReac Type Severity Reaction Status Date / Time bee venom protein (honey bee) Allergy Severe Anaphylaxis Verified 06/05/19 12:33 Review of Systems ROS Statement: Those systems with pertinent positive or pertinent negative responses have been documented in the HPI. ROS Other: All systems not noted in ROS Statement are negative. Past Medical History Past Medical History: GERD/Reflux, Osteoarthritis (OA) Additional Past Medical History / Comment(s): ARRYTHMIA- PVC'S, DIARRHEA., chronic sinusitis History of Any Multi-Drug Resistant Organisms: None Reported Past Surgical History: Cholecystectomy, Joint Replacement, Orthopedic Surgery, Tonsillectomy Additional Past Surgical History / Comment(s): Lt total knee ,Rt rotator cuff repair. Past Anesthesia/Blood Transfusion Reactions: No Reported Reaction Past Psychological History: No Psychological Hx Reported Smoking Status: Former smoker Past Alcohol Use History: Rare Past Drug Use History: None Reported - Past Family History Mother Family Medical History: Cancer, Coronary Artery Disease (CAD) Additional Family Medical History / Comment(s): uterine Father Family Medical History: Cancer, Coronary Artery Disease (CAD), Deep Vein Thrombosis (DVT) Additional Family Medical History / Comment(s): testicular General Exam - General Exam Comments Initial Comments: This is a well-developed well-nourished awake alert oriented times 3 male Limitations: no limitations General appearance: alert, anxious Head exam: Present: atraumatic, normocephalic, normal inspection Eye exam: Present: normal appearance, PERRL, EOMI. Absent: scleral icterus, conjunctival injection, periorbital swelling ENT exam: Present: normal exam, mucous membranes moist Neck exam: Present: normal inspection. Absent: tenderness, meningismus, lymphadenopathy Respiratory exam: Present: normal lung sounds bilaterally. Absent: respiratory distress, wheezes, rales, rhonchi, stridor Cardiovascular Exam: Present: regular rate, normal rhythm, normal heart sounds. Absent: systolic murmur, diastolic murmur, rubs, gallop, clicks GI/Abdominal exam: Present: soft, tenderness (Suprapubic area tenderness some mild right and left lower quadrant tenderness no guarding rebound masses or bruits), normal bowel sounds. Absent: distended, guarding, rebound, rigid Rectal exam: Present: deferred Extremities exam: Present: normal inspection, full ROM, normal capillary refill. Absent: tenderness, pedal edema, joint swelling, calf tenderness Back exam: Present: normal inspection Neurological exam: Present: alert, oriented X3, CN II-XII intact Psychiatric exam: Present: normal affect, normal mood Skin exam: Present: warm, dry, intact, normal color. Absent: rash Course Vital Signs 06/05/19 06/05/19 11:51 13:47 Temperature 98.2 F Pulse Rate 79 62 Respiratory 19 18 Rate Blood Pressure 119/82 105/56 O2 Sat by Pulse 98 96 Oximetry Medical Decision Making - Medical Decision Making Patient states she is feeling better I did discuss findings with him he is a candidate for outpatient antibiotic therapy. He is in agreement with this he would like to go home on oral medication he is follow-up with his doctor return when necessary he does state he feels he does not need much in the way pain medication. - Lab Data Result diagrams: 06/05/19 12:41 06/05/19 12:41 Lab Results 06/05/19 06/05/19 06/05/19 Range/Units 12:41 12:41 12:41 WBC 9.7 (3.8-10.6) k/uL RBC 5.13 (4.30-5.90) m/uL Hgb 15.3 (13.0-17.5) gm/dL Hct 45.7 (39.0-53.0) % MCV 89.0 (80.0-100.0) fL MCH 29.9 (25.0-35.0) pg MCHC 33.5 (31.0-37.0) g/dL RDW 13.4 (11.5-15.5) % Plt Count 216 (150-450) k/uL Neutrophils % 68 % Lymphocytes % 20 % Monocytes % 7 % Eosinophils % 3 % Basophils % 0 % Neutrophils # 6.6 (1.3-7.7) k/uL Lymphocytes # 2.0 (1.0-4.8) k/uL Monocytes # 0.7 (0-1.0) k/uL Eosinophils # 0.3 (0-0.7) k/uL Basophils # 0.0 (0-0.2) k/uL Sodium 140 (137-145) mmol/L Potassium 4.0 (3.5-5.1) mmol/L Chloride 105 (98-107) mmol/L Carbon Dioxide 24 (22-30) mmol/L Anion Gap 11 mmol/L BUN 13 (9-20) mg/dL Creatinine 1.23 (0.66-1.25) mg/dL Est GFR (CKD-EPI)AfAm 74 (>60 ml/min/1.73 sqM) Est GFR (CKD-EPI)NonAf 64 (>60 ml/min/1.73 sqM) Glucose 95 (74-99) mg/dL Calcium 9.3 (8.4-10.2) mg/dL Total Bilirubin 0.9 (0.2-1.3) mg/dL AST 89 H (17-59) U/L ALT 108 H (21-72) U/L Alkaline Phosphatase 113 (38-126) U/L Creatine Kinase 272 H (55-170) U/L Total Protein 7.2 (6.3-8.2) g/dL Albumin 4.3 (3.5-5.0) g/dL Amylase 50 (30-110) U/L Lipase 47 (23-300) U/L Urine Color Yellow Urine Appearance Clear (Clear) Urine pH 5.5 (5.0-8.0) Ur Specific Nada 1.008 (1.001-1.035) Urine Protein Negative (Negative) Urine Glucose (UA) Negative (Negative) Urine Ketones Negative (Negative) Urine Blood Negative (Negative) Urine Nitrite Negative (Negative) Urine Bilirubin Negative (Negative) Urine Urobilinogen <2.0 (<2.0) mg/dL Ur Leukocyte Esterase Negative (Negative) - Radiology Data Radiology results: report reviewed (I did review the imaging and report evidence of diverticulitis no evidence of any fluid collections or other abnormalities. He stated complete report), image reviewed Disposition Clinical Impression: Diverticulitis, Abdominal pain Disposition: HOME SELF-CARE Condition: Good Instructions (If sedation given, give patient instructions): Abdominal Pain (ED), Diverticulitis (ED) Prescriptions: Amoxicillin/Potassium Clav [Augmentin 875-125 Tablet] 1 tab PO Q12HR #20 tab Ibuprofen 800 mg PO Q6HR PRN #20 tablet PRN Reason: Pain Is patient prescribed a controlled substance at d/c from ED?: No Referrals: Leah Spencer MD [Primary Care Provider] - 1-2 days
[2019-06-05 12:53] LABS: Basophils % (A) 0 %; Eosinophils # (A) 0.3 k/uL (0-0.7); Eosinophils % (A) 3 %; HCT 45.7 % (39.0-53.0); HGB 15.3 gm/dL (13.0-17.5); Lymphocytes % (A) 20 %; MCH 29.9 pg (25.0-35.0); MCHC 33.5 g/dL (31.0-37.0); Mean Platelet Volume 6.9; Monocytes # (A) 0.7 k/uL (0-1.0); Monocytes % (A) 7 %; Neutrophils # (A) 6.6 k/uL (1.3-7.7); Neutrophils % (A) 68 %; Platelet Count 216 k/uL (150-450); RBC 5.13 m/uL (4.30-5.90); RDW 13.4 % (11.5-15.5); WBC 9.7 k/uL (3.8-10.6)
[2019-06-05 13:03] LABS: Albumin 4.3 g/dL (3.5-5.0); Appearance,Urine Clear (Clear); Bilirubin,Urine Negative (Negative); Blood,Urine Negative (Negative); Calcium 9.3 mg/dL (8.4-10.2); Color,Urine Yellow; Glucose,Urine (UA) Negative (Negative); Ketones,Urine Negative (Negative); Leukocyte Esterase,Urine Negative (Negative); Nitrite,Urine Negative (Negative); PH, Urine 5.5 (5.0-8.0); Protein,Urine Negative (Negative); Specific Gravity,Urine 1.008 (1.001-1.035); Total Bilirubin 0.9 mg/dL (0.2-1.3); Total Protein 7.2 g/dL (6.3-8.2); Urobilinogen,Urine <2.0 mg/dL (<2.0)
--- NOTE | 2019-06-05 13:08 | XR ---
EXAMINATION TYPE: XR KUB , 2 VIEWS DATE OF EXAM ORDERED: 06/05/2019 HISTORY: abdominal pain. COMPARISON: None. FINDINGS: The lungs bases are clear. Within the abdomen, the gallbladder is been removed. The abdominal gas pattern is within normal limit s. There are scattered air-fluid levels seen. There is no evidence of obstruction or free air. No unu sual calcifications are identified. Note is made of spina bifida occulta at S1. IMPRESSION: I CANNOT EXCLUDE AN EARLY ILEUS.
[2019-06-05 13:48] VITALS: RESP 18
--- NOTE | 2019-06-05 14:09 | CT ---
EXAMINATION TYPE: CT abdomen pelvis w con DATE OF EXAM: 06/05/2019 COMPARISON: 11/14/2018 HISTORY: LLQ pain, history of diverticulitis CT DLP: 941.2 mGycm Automated exposure control for dose reduction was used. TECHNIQUE: Helical acquisition of images was performed from the lung bases through the pelvis. CONTRAST: Performed without Oral Contrast and with IV Contrast, patient injected with 100 mL of Isovue 300. FINDINGS: Lung bases are clear. There is no pleural effusion. Heart size is normal. There is no pericardial eff usion. Stomach appears normal. There is 1.5 cm cyst anterior right lobe of the liver. There are clips from cholecystectomy. Bile ducts are not dilated. Spleen and pancreas appear normal. There is no adrenal mass. Kidneys show satisfactory contrast opacification. There is no hydronephrosi s. There is no retroperitoneal adenopathy. Appendix appears normal. Bladder distends smoothly. There is no inguinal hernia. There is fat stranding and fluid around the sigmoid colon. There are multiple sigmoid diverticula. Th ere are multiple diverticula of the descending colon. There is no evidence of free air. There is no a scites. There is L5 spondylolysis with first-degree L5-S1 spondylolisthesis. Bony pelvis is intact. IMPRESSION: THERE IS EVIDENCE OF MODERATE SIGMOID DIVERTICULITIS INVOLVING THE MID SIGMOID COLON. THERE IS CLEARI NG OF THE DIVERTICULITIS OF THE LOWER DESCENDING COLON AND PROXIMAL SIGMOID COLON COMPARED TO LAST EX AM. No drainable fluid collection.
[2019-06-05] MEDS ORDERED: AMOXIC-POT CLAV 875-125MG 1 EACH TAB PO STA (14:40)
[2019-06-05 14:56] VITALS: BP 115/77; PULSE 60; TEMP 97.9
== END 2019-06-05 14:57 | disposition home or self-care (01) ==
LOC: EC 11:47
DX: K57.32 Diverticulitis of large intestine without perforation or abscess without bleeding (principal); K21.9 Gastro-esophageal reflux disease without esophagitis; Z79.899 Other long term (current) drug therapy; Z91.030 Bee allergy status; Z87.891 Personal history of nicotine dependence
CPT/HCPCS: 36415; 80053; 82150; 82550; 83690; 85025; 81003; 74018; 74177; 99284; 96374; 96361 ×2; J1885; Q9967

== ENCOUNTER → 2019-07-14 | Outpatient (CLI) | payer BC ==
--- NOTE | 2019-07-15 04:47 | CT ---
EXAMINATION TYPE: CT sinus wo con DATE OF EXAM: 07/14/2019 COMPARISON: None HISTORY: 59-year-old male Chronic sinusitis. CT DLP: 599 mGycm Automated exposure control for dose reduction was used. TECHNIQUE: Noncontrast axial views of the paranasal sinuses were obtained. Coronal reconstructions pe rformed. FINDINGS: PARANASAL SINUSES: Scattered mild mucosal thickening within the ethmoid air cells. Lobulated mucosal thickening floor of the right maxillary sinus and scattered mild mucosal thickening remainder of the right maxillary sinus. Trace mucosal thickening left sphenoid sinus. Frontal sinuses are hypoplastic. There is no air-fluid level. Reactive jacek- osteogenesis is not seen. There is no destruction of the osseous cui of the paranasal sinuses. THE NASAL CAVITY: The osteomeatal complexes are patent. Nasal septum shows minimal bowing towards the right. The imaged brain shows mild bifrontal atrophy. Orbits and globes appear intact. Mastoid air cells and middle ear cavities are well pneumatized. Cerumen noted within the bilateral ex ternal auditory canals. Reformatted images confirm above findings. IMPRESSION: Lobulated mucosal thickening floor of the right maxillary sinus. Additional scattered mild mucosal th ickening right maxillary sinus, bilateral ethmoid air cells, and left sphenoid sinus. Hypoplastic frontal sinuses.
== END | disposition home or self-care (01) ==
LOC: RADCTMAIN 15:46
PROVIDERS: ATTEND Otolaryngology
DX: J34.89 Other specified disorders of nose and nasal sinuses (principal); J32.9 Chronic sinusitis, unspecified
CPT/HCPCS: 70486

== ENCOUNTER 2020-05-22 11:37 | Emergency (ER) | payer BC ==
[2020-05-22] MEDS ORDERED: diphenhydrAMINE 50 MG/ML 1 ML VIAL IVP STA (11:51)
[2020-05-22] MEDS ORDERED: methylPREDNISolone SOD SUCCI 125 MG/2 ML VIAL IV STA (11:52)
[2020-05-22] MEDS ORDERED: FAMOTIDINE 20 MG/2 ML VIAL IV STA (11:52)
[2020-05-22] MEDS ORDERED: ALBUTEROL NEBULIZED 2.5 MG/3 ML INHALATION STA (11:54)
[2020-05-22] MEDS ORDERED: EPINEPHrine 1 MG/ML 1 ML AMP SQ STA (11:54)
--- NOTE | 2020-05-22 12:00 | ED ---
Allergic Reaction HPI - General Chief complaint: Allergic Reaction Stated complaint: Allergic Reaction,bee stings Time Seen by Provider: 05/22/20 11:47 Source: patient, RN notes reviewed, old records reviewed Mode of arrival: ambulatory Limitations: no limitations - History of Present Illness Initial Comments: This is a 60-year-old fe male who presents to return today for ALLERGIC reaction. Patient reports he was working outside and hit a bee's nest. He reports being about 12 stings approximately over his back hands and chest. Patient reports that he does have history of ALLERGIES to bees. He states that he had not given himself an appendectomy or Benadryl prior to arrival. Patient reports he does feel slightly wheezy at this time. Patient states that he has no tongue swelling or difficulty with swallowing. - Related Data Home Medications Medication Instructions Recorded Confirmed Flecainide [Tambocor] 50 mg PO TID 09/04/18 05/22/20 Metoprolol Succinate (ER) [Toprol 12.5 mg PO BID 11/14/18 05/22/20 XL] Naproxen Sodium [Aleve] 220 mg PO DAILY PRN 05/22/20 05/22/20 Omeprazole 20 mg PO DAILY 05/22/20 05/22/20 Previous Rx's Medication Instructions Recorded EPINEPHrine (Auto Inject) [Epipen] 0.3 mg IM ONCE PRN #2 pen 05/22/20 Famotidine [Pepcid] 20 mg PO BID #10 tablet 05/22/20 diphenhydrAMINE [Benadryl] 25 mg PO QID PRN #20 capsule 05/22/20 predniSONE [Deltasone] 20 mg PO DIRECTED #12 tab 05/22/20 Allergies Allergy/AdvReac Type Severity Reaction Status Date / Time bee venom protein (honey bee) Allergy Severe Anaphylaxis Verified 05/22/20 13:14 Review of Systems ROS Statement: Those systems with pertinent positive or pertinent negative responses have been documented in the HPI. ROS Other: All systems not noted in ROS Statement are negative. Past Medical History Past Medical History: GERD/Reflux, Osteoarthritis (OA) Additional Past Medical History / Comment(s): ARRYTHMIA- PVC'S, DIARRHEA., chronic sinusitis History of Any Multi-Drug Resistant Organisms: None Reported Past Surgical History: Cholecystectomy, Joint Replacement, Orthopedic Surgery, Tonsillectomy Additional Past Surgical History / Comment(s): Lt total knee ,Rt rotator cuff repair, sinus sx Past Anesthesia/Blood Transfusion Reactions: No Reported Reaction Past Psychological History: No Psychological Hx Reported Smoking Status: Former smoker Past Alcohol Use History: Rare Past Drug Use History: None Reported - Past Family History Mother Family Medical History: Cancer, Coronary Artery Disease (CAD) Additional Family Medical History / Comment(s): uterine Father Family Medical History: Cancer, Coronary Artery Disease (CAD), Deep Vein Thrombosis (DVT) Additional Family Medical History / Comment(s): testicular General Exam - General Exam Comments Initial Comments: Pleasant 60-year-old male. No significant distress. Limitations: no limitations General appearance: alert Head exam: Present: atraumatic, normocephalic, normal inspection Eye exam: Present: normal appearance, PERRL, EOMI. Absent: scleral icterus, conjunctival injection, periorbital swelling ENT exam: Present: normal exam, mucous membranes moist Neck exam: Present: normal inspection. Absent: tenderness, meningismus, lymphadenopathy Respiratory exam: Present: wheezes (Slight wheezing). Absent: normal lung sounds bilaterally, respiratory distress, rales, rhonchi, stridor Cardiovascular Exam: Present: regular rate, normal rhythm, normal heart sounds. Absent: systolic murmur, diastolic murmur, rubs, gallop, clicks GI/Abdominal exam: Present: soft, normal bowel sounds. Absent: distended, tenderness, guarding, rebound, rigid Extremities exam: Present: normal inspection, full ROM, normal capillary refill. Absent: tenderness, pedal edema, joint swelling, calf tenderness Back exam: Absent: normal inspection (Patient has multiple hives and approximately 8 welts over the right upper back , from bee stings.) Neurological exam: Present: alert, oriented X3, CN II-XII intact Psychiatric exam: Present: normal affect, normal mood Course Vital Signs 05/22/20 05/22/20 05/22/20 11:39 12:10 12:17 Temperature 97.9 F Pulse Rate 76 88 86 Respiratory 16 Rate Blood Pressure 136/86 O2 Sat by Pulse 94 L Oximetry 05/22/20 05/22/20 12:45 13:46 Temperature 97.8 F Pulse Rate 87 84 Respiratory 18 18 Rate Blood Pressure 123/81 118/77 O2 Sat by Pulse 97 97 Oximetry Medical Decision Making - Medical Decision Making 6-year-old male presents respectively ALLERGIC reaction to multiple bee stings. Patient given IV site metal Benadryl Pepcid and 0.3 mg of epinephrine subcu. Patient was monitored emergency department for 2 hours. He had significant improvement of his hives and swelling symptoms. Patient states he feels much better. Discussed writing the Patient for an EpiPen to have there is any other further bee stings and a worsening reaction next time. Discussed close follow- up. Discharge and steroids Benadryl Pepcid. - Radiology Data Radiology results: report reviewed Disposition Clinical Impression: Allergy to bee sting Disposition: HOME SELF-CARE Condition: Good Instructions (If sedation given, give patient instructions): Anaphylaxis (ED) Additional Instructions: Patient is a take Benadryl every 4-6 hours for the next day. Start dosing the steroid tomorrow. Make sure you keep an epipen at home and in vehicle at all times if there is any further bee stings and worsening ALLERGIC reaction in the future. Return to ED if any alarming signs or symptoms occur. Prescriptions: diphenhydrAMINE [Benadryl] 25 mg PO QID PRN #20 capsule PRN Reason: Itching predniSONE [Deltasone] 20 mg PO DIRECTED #12 tab EPINEPHrine (Auto Inject) [Epipen] 0.3 mg IM ONCE PRN #2 pen PRN Reason: Anaphylaxis Famotidine [Pepcid] 20 mg PO BID #10 tablet Is patient prescribed a controlled substance at d/c from ED?: No Referrals: Leah Spencer MD [Primary Care Provider] - 1-2 days Time of Disposition: 13:34
[2020-05-22 12:47] VITALS: RESP 18
[2020-05-22 13:47] VITALS: BP 118/77; PULSE 84; TEMP 97.8
== END 2020-05-22 13:46 | disposition home or self-care (01) ==
LOC: EC 11:37
DX: T63.441A Toxic effect of venom of bees, accidental (unintentional), initial encounter (principal); K21.9 Gastro-esophageal reflux disease without esophagitis; M19.90 Unspecified osteoarthritis, unspecified site; Z79.1 Long term (current) use of non-steroidal anti-inflammatories (NSAID); Z79.899 Other long term (current) drug therapy; Z91.030 Bee allergy status; Z87.891 Personal history of nicotine dependence; Z96.652 Presence of left artificial knee joint
CPT/HCPCS: 94640; 99284; 96374; 96375 ×2; 96372; J0171; J1200; J2930

== ENCOUNTER → 2020-11-08 | Outpatient (CLI) | payer BC ==
--- NOTE | 2020-11-08 08:51 | US ---
EXAMINATION TYPE: US abdomen limited DATE OF EXAM: 11/08/2020 COMPARISON: CLINICAL HISTORY: R74.01 ELEVATED LIVER TRANSAMINASE LEVELS. gb removed. abnormal lab. Hx liver cys t. EXAM MEASUREMENTS: Liver Length: 15.3 cm CBD: 0.5 cm Right Kidney: 10.6 x 4.5 x 5.2 cm Limited due to overlying bowel gas Pancreas: Echogenic, limited visualization Liver: Anterior cystic lesions seen adjacent to each other, largest = 1.5 x 1.2 x 1.2 cm Gallbladder: Surgically absent Evidence for sonographic Parirsh's sign: neg CBD: wnl in size, limited visualization Right Kidney: No hydronephrosis or masses seen IMPRESSION: 1. Hepatic cysts.
== END | disposition home or self-care (01) ==
LOC: RADUSWWP 07:24
PROVIDERS: ATTEND Family Medicine
DX: K76.89 Other specified diseases of liver (principal); R74.01 Elevation of levels of liver transaminase levels
CPT/HCPCS: 76705

== ENCOUNTER → 2021-04-10 | Outpatient (CLI) | payer BC ==
[2021-04-10 20:34] LABS: Chol/HDL Ratio 3.82; LDL Cholesterol,Calculated 97.2 mg/dL (0.0-131.0); VLDL Calculation 26.8 mg/dL (5.00-40.00)
== END | disposition home or self-care (01) ==
LOC: LABWHC1 07:31
PROVIDERS: ATTEND Nurse Practitioner Adult Health
DX: E78.5 Hyperlipidemia, unspecified (principal)
CPT/HCPCS: 36415; 80061; 82550; 84450; 84460

== ENCOUNTER → 2023-09-10 | Outpatient (CLI) | payer OTHER ==
--- NOTE | 2023-09-10 13:59 | USB ---
Reason for Exam: Clinical finding. Patient History: Mother had ovarian cancer, age 50. Father had other cancer at or over age 50. Technique: Method: Targeted. Findings: The area of palpable concern of the right breast, the axilla of the right breast and the retroareolar of the right breast were scanned. There is a faint ill-defined slightly hyperechoic area within the 5:00 right breast 4 cm from the nipple corresponding to the patient's palpable abnormality. This measures 1.2 x 0.5 x 0.7 cm there may be a small lipoma. No suspicious spiculated or lobular masses evident. No cysts are evident.. Overall Assessment: Benign, BI-RAD 2 Electronically signed and approved by: Jayant Ramires D.O. Radiologis
--- NOTE | 2023-09-10 14:01 | MM ---
Reason for Exam: Clinical finding. Indicated Problems: Lump or thickening of the right side for 6 Month(s). Patient History: Mother had ovarian cancer, age 50. Father had other cancer at or over age 50. Tissue Density: The breast tissue is almost entirely fat. Findings: Analyzed By CAD. Pattern appears symmetrical. A palpable marker is placed on the medial right breast. No suspicious groups of microcalcifications, spiculated or lobular masses, architectural distortion or other secondary signs of malignancy are mammographically apparent. Overall Assessment: Negative, BI-RAD 1 Management: Diagnostic Breast Ultrasound of the right breast. A negative mammogram report should not preclude additional follow up of suspicious palpable abnormalities. Patient should continue monthly self breast exam. A clinical breast exam by your physician is recommended on an annual basis and results should be correlated with mammographic findings. Electronically signed and approved by: Jayant Ramires D.O. Radiologis
== END | disposition home or self-care (01) ==
LOC: RADMAMWWP 07:31
PROVIDERS: ATTEND Family Medicine
DX: N63.13 Unspecified lump in the right breast, lower outer quadrant (principal); R92.313 Mammographic fatty tissue density, bilateral breasts
CPT/HCPCS: 77062; 77066

== ENCOUNTER → 2024-03-15 | Outpatient (CLI) | payer OTHER ==
[2024-03-15 22:29] LABS: Basophils # (A) 0.04 X 10*3/uL (0.00-0.10); Basophils % (A) 0.3 %; Eosinophils # (A) 0.02 X 10*3/uL (0.04-0.35); Eosinophils % (A) 0.2 %; HCT 49.1 % (39.6-50.0); HGB 16.2 g/dL (13.0-17.0); Lymphocytes # (A) 2.58 X 10*3/uL (0.90-5.00); Lymphocytes % (A) 21.7 %; MCH 29.5 pg (27.0-32.0); MCV 89.3 FL (80.0-97.0); Mean Platelet Volume 10.2 FL (9.5-12.2); Monocytes % (A) 10.1 %; NRBC Per 100 WBC 0 X 10*3/uL (0.00-0.01); Neutrophils # (A) 7.86 X 10*3/uL (1.80-7.70); Neutrophils % (A) 66.3 %; Platelet Count 273 X 10*3/uL (140-440); RDW 14.1 % (11.5-14.5); WBC 11.87 X 10*3/uL (4.50-10.00)
[2024-03-15 22:43] LABS: Erythrocyte Sedimentation Rate 3 mm/Hr (0-20)
== END | disposition home or self-care (01) ==
LOC: LABWHC1 14:53
PROVIDERS: ATTEND Orthopaedic Surgery
DX: A49.9 Bacterial infection, unspecified (principal); R79.82 Elevated C-reactive protein (CRP)
CPT/HCPCS: 36415; 85025; 85652; 86140

== ENCOUNTER → 2024-05-18 | Outpatient (CLI) | payer OTHER ==
[2024-05-18 18:43] LABS: Basophils # (A) 0.07 X 10*3/uL (0.00-0.10); Basophils % (A) 0.9 %; Eosinophils # (A) 0.25 X 10*3/uL (0.04-0.35); Eosinophils % (A) 3.2 %; HCT 48.1 % (39.6-50.0); HGB 15.5 g/dL (13.0-17.0); Lymphocytes % (A) 37.7 %; MCH 30.1 pg (27.0-32.0); MCHC 32.2 g/dL (32.0-37.0); MCV 93.4 FL (80.0-97.0); Mean Platelet Volume 10.6 FL (9.5-12.2); Monocytes # (A) 0.61 X 10*3/uL (0.20-1.00); Monocytes % (A) 7.9 %; NRBC Per 100 WBC 0 X 10*3/uL (0.00-0.01); Neutrophils # (A) 3.83 X 10*3/uL (1.80-7.70); Neutrophils % (A) 49.8 %; Platelet Count 247 X 10*3/uL (140-440); RBC 5.15 X 10*6/uL (4.40-5.60); RDW 14.1 % (11.5-14.5)
[2024-05-18 18:55] LABS: Erythrocyte Sedimentation Rate 7 mm/Hr (0-20)
== END | disposition home or self-care (01) ==
LOC: LABWHC1 14:06
PROVIDERS: ATTEND Orthopaedic Surgery
DX: A49.9 Bacterial infection, unspecified (principal)
CPT/HCPCS: 36415; 85025; 85652; 86140

== ENCOUNTER → 2024-11-25 | Outpatient (CLI) | payer OTHER ==
[2024-11-25 15:02] LABS: Basophils # (A) 0.07 X 10*3/uL (0.00-0.10); Basophils % (A) 1.1 %; Eosinophils # (A) 0.24 X 10*3/uL (0.04-0.35); Eosinophils % (A) 3.9 %; HGB 14.3 g/dL (13.0-17.0); Lymphocytes # (A) 2.41 X 10*3/uL (0.90-5.00); Lymphocytes % (A) 38.8 %; MCH 29.2 pg (27.0-32.0); MCHC 31.8 g/dL (32.0-37.0); Mean Platelet Volume 10.6 FL (9.5-12.2); Monocytes # (A) 0.46 X 10*3/uL (0.20-1.00); Monocytes % (A) 7.4 %; NRBC Per 100 WBC 0 X 10*3/uL (0.00-0.01); Neutrophils # (A) 3.02 X 10*3/uL (1.80-7.70); Neutrophils % (A) 48.6 %; Platelet Count 268 X 10*3/uL (140-440); RBC 4.89 X 10*6/uL (4.40-5.60); RDW 13.8 % (11.5-14.5); WBC 6.21 X 10*3/uL (4.50-10.00)
[2024-11-25 16:26] LABS: Erythrocyte Sedimentation Rate 15 mm/Hr (0-20)
== END | disposition home or self-care (01) ==
LOC: LABWHC1 10:13
PROVIDERS: ATTEND Orthopaedic Surgery
DX: M75.41 Impingement syndrome of right shoulder (principal); M19.011 Primary osteoarthritis, right shoulder
CPT/HCPCS: 36415; 85025; 85652; 86140

== ENCOUNTER 2024-12-07 16:59 | Emergency (ER) | payer OTHER ==
--- NOTE | 2024-12-07 17:38 | ED ---
Chest Pain HPI - General Source: patient, RN notes reviewed Mode of arrival: ambulatory Limitations: no limitations - History of Present Illness MD Complaint: chest pain <AbenaNikos - Last Filed: 12/07/24 17:36> - General Source: patient, RN notes reviewed Mode of arrival: ambulatory Limitations: no limitations <Kristina Cruz - Last Filed: 12/08/24 21:24> - General Stated Complaint: fast heartbeat after surgery sob Time Seen by Provider: 12/07/24 17:16 - History of Present Illness Initial Comments: Quick note: This is a 64-year-old male presenting with chest tightness and SOB starting today. Patient endorses having right shoulder replacement surgery this morning with subsequent chest symptoms and tachycardia (127 bpm). Patient endorses history of PVCs and was recently diagnosed with intermittent A-fib. States he is aware some anesthetics may cause arrhythmias. Currently takes flecainide and atenolol for arrhythmias. Denies radiating pain, diaphoresis, dizziness/lightheadedness. (Nikos Kraft) 64-year-old male presented to the ER for evaluation of chest discomfort. Patient underwent right total shoulder arthroplasty today performed by Dr. Arevalo. He states he was discharged from surgery around noon and approximately around 3 PM this evening he started to experience a tight chest discomfort in his central chest. He denies any radiation. He also reports he looked at his watch noting his heart rate was 120-130s. During presurgical clearance he was found to have intermittent atrial fibrillation from a Holter monitor. He states since it was only a short isolated incident and he has not been completely worked up at this time. He is not on a blood thinner. He states he takes flecainide and metoprolol for arrhythmia as he had PVCs noted as well. He is following up with Dr. Montoya. Patient is currently complaining of an achy centralized chest discomfort with associated shortness of breath. He denies any history of DVTs or PEs. He denies any current dizziness, lightheadedness, nausea or vomiting. He does state with onset of pain he did have mild nausea and dizziness. This has not subsided. No other complaints at this time. (Kristina Cruz) - Related Data Home Medications Medication Instructions Recorded Confirmed Flecainide [Tambocor] 50 mg PO BID 09/04/18 12/07/24 Omeprazole 20 mg PO Q48H 05/22/20 12/07/24 Ascorbic Acid [Vitamin C] 500 mg PO DAILY 12/07/24 12/07/24 Aspirin EC [Ecotrin Low Dose] 81 mg PO DAILY 12/07/24 12/07/24 Docusate [Colace] 100 mg PO DAILY 12/07/24 12/07/24 Ibguard 1 cap PO DAILY 12/07/24 12/07/24 Loratadine [Claritin] 10 mg PO DAILY 12/07/24 12/07/24 Rosuvastatin [Crestor] 10 mg PO DAILY 12/07/24 12/07/24 atenoloL [Tenormin] 12.5 mg PO DAILY 12/07/24 12/07/24 cefaDROXiL [Duricef] 500 mg PO Q12HR 12/07/24 12/07/24 oxyCODONE-APAP 5-325MG [Percocet 1 tab PO Q4H PRN 12/07/24 12/07/24 5-325 mg] Allergies Allergy/AdvReac Type Severity Reaction Status Date / Time bee venom protein (honey bee) Allergy Severe Anaphylaxis Verified 12/07/24 19:38 Review of Systems ROS Other: All systems not noted in ROS Statement are negative. <Nikos Kraft - Last Filed: 12/07/24 17:36> ROS Other: All systems not noted in ROS Statement are negative. <Kristina Cruz - Last Filed: 12/08/24 21:24> ROS Statement: Those systems with pertinent positive or pertinent negative responses have been documented in the HPI. EKG Findings - EKG Comments: EKG Findings:: EKG taken at 18: 14 showing a sinus tachycardia. No ST segment elevations or depressions. Inverted T waves in lead III and aVF. Ventricular rate 114, DC interval 148, QRS duration 97, QT/QTc 327/394. <Kristina Cruz - Last Filed: 12/08/24 21:24> Past Medical History Past Medical History: GERD/Reflux, Osteoarthritis (OA) Additional Past Medical History / Comment(s): ARRYTHMIA- PVC'S, DIARRHEA., chronic sinusitis History of Any Multi-Drug Resistant Organisms: None Reported Past Surgical History: Cholecystectomy, Joint Replacement, Orthopedic Surgery, Tonsillectomy Additional Past Surgical History / Comment(s): Lt total knee ,Rt rotator cuff repair, sinus sx Past Anesthesia/Blood Transfusion Reactions: No Reported Reaction Past Psychological History: No Psychological Hx Reported Past Alcohol Use History: Rare Past Drug Use History: None Reported - Past Family History Mother Family Medical History: Cancer, Coronary Artery Disease (CAD) Additional Family Medical History / Comment(s): uterine Father Family Medical History: Cancer, Coronary Artery Disease (CAD), Deep Vein Thrombosis (DVT) Additional Family Medical History / Comment(s): testicular <Nikos Kraft - Last Filed: 12/07/24 17:36> General Exam <Nikos Kraft - Last Filed: 12/07/24 17:36> General appearance: alert, in no apparent distress Respiratory exam: Present: normal lung sounds bilaterally. Absent: respiratory distress, wheezes, rales, rhonchi, stridor Cardiovascular Exam: Present: normal rhythm, tachycardia, normal heart sounds Extremities exam: Present: normal inspection, full ROM, normal capillary refill. Absent: tenderness, pedal edema, joint swelling, calf tenderness Neurological exam: Present: alert, oriented X3, CN II-XII intact Skin exam: Present: warm, dry, intact, normal color. Absent: rash <Kristina Cruz - Last Filed: 12/08/24 21:24> - General Exam Comments Initial Comments: Visual Physical Exam Vital signs reviewed General: Well-appearing, nontoxic, no acute distress. Head: Normocephalic, atraumatic Eyes: PERRLA, EOMI ENT: Airway patent Chest: Nonlabored breathing Skin: No visual rash, normal skin tone Neuro: Alert and oriented 3 Musculoskeletal: No gross abnormalities. Patient's right arm placed in sling. (Nikos Kraft) Course Vital Signs 12/07/24 12/07/24 12/07/24 17:44 19:25 22:03 Temperature 97.8 F 97.6 F Pulse Rate 120 H 110 H 98 Respiratory 18 18 17 Rate Blood Pressure 130/81 140/84 126/74 O2 Sat by Pulse 97 95 95 Oximetry Chest Pain MDM <Nikos Kraft - Last Filed: 12/07/24 17:36> <Kristina Cruz - Last Filed: 01/22/25 21:24> - MDM I completed the quick note portion of this chart signed REZA Lara (Nikos Kraft) Was pt. sent in by a medical professional or institution (HOLLY Porter, HEMATOLOGY TECHNOLOGIST, urgent c are, hospital, or longterm...) When possible be specific @ -No Did you speak to anyone other than the patient for history (EMS, parent, family, police, friend...)? What history was obtained from this source @ -Significant other, at bedside, aiding in HPI and past medical history. Did you review nursing and triage notes (agree or disagree)? Why? @ -I reviewed and agree with nursing and triage notes Were old charts reviewed (outside hosp., previous admission, EMS record, old EKG, old radiological studies, urgent care reports/EKG's, longterm records)? Report findings @ -No old charts were reviewed Differential Diagnosis (chest pain, altered mental status, abdominal pain women, abdominal pain men, vaginal bleeding, weakness, fever, dyspnea, syncope, headache, dizziness, GI bleed, back pain, seizure, CVA, palpatations, mental health, musculoskeletal)? @ -Differential Chest Pain: Stable Angina, Unstable Angina, STEMI, NSTEMI Aortic Dissection, Pneumothorax, Musculoskeletal, Esophageal Spasm GERD, Cholecystitis, Pancreatitis, Zoster, this is not meant to be an all-inclusive list. EKG interpreted by me (3pts min.). @ -As above X-rays interpreted by me (1pt min.). @ -CXR interpreted by me negative for focal consolidations. CT interpreted by me (1pt min.). @ -None done U/S interpreted by me (1pt. min.). @ -None done What testing was considered but not performed or refused? (CT, X-rays, U/S, labs)? Why? @ -Second troponin recommended but was refused by patient. He displayed medical decision-making capabilities. ANO x 3. Risk to benefits discussed with patient who refused second troponin. What meds were considered but not given or refused? Why? @ -None Did you discuss the management of the patient with other professionals (professionals i.e. HOLLY Porter, HEMATOLOGY TECHNOLOGIST, lab, RT, psych nurse, social worker assistant, fabric lay out worker, teacher, mechanical engineering officer, disease case manager)? Give summary @ -No Was smoking cessation discussed for >3mins.? @ -No Was critical care preformed (if so, how long)? @ -No Were there social determinants of health that impacted care today? How? (Homelessness, low income, unemployed, alcoholism, drug addiction, transportation, low edu. Level, literacy, decrease access to med. care, custodial, rehab)? @ -No Was there de-escalation of care discussed even if they declined (Discuss DNR or withdrawal of care, Hospice)? DNR status @ -No What co-morbidities impacted this encounter? (DM, HTN, Smoking, COPD, CAD, Cancer, CVA, ARF, Chemo, Hep., AIDS, mental health diagnosis, sleep apnea, morbid obesity)? @ -None Was patient admitted / discharged? Hospital course, mention meds given and route, prescriptions, significant lab abnormalities, going to OR and other pertinent info. @ -Discharged. 64 year old male presenting to the ER for evaluation of tachycardia and chest discomfort. Upon rooming, history and physical exam completed. Patient is tachycardic at 120 bpm vitals otherwise within acceptable limits. Patient in no signs of distress nontoxic-appearing. Laboratory studies obtained showed a leukocytosis of 13.0 with a left shift which is likely reactive from patient's recent surgical intervention. D-dimer elevated at 4.92 for which CTA chest was obtained and negative for acute evidence of pulmonary process or pulmonary embolism. Troponin undetectable. EKG showing a sinus tachycardia with ST segment elevations or depressions. Inverted T waves in lead III and aVF. Heart score 2. Patient's tachycardia improved throughout ER stay without medications. Patient refused second troponin as he states he is tired and would like to go home. I instructed patient to follow-up closely with PCP and/or prefitter doors in the next 1-2 days. Patient stable for discharge. Strict return parameters discussed. Patient discharged in stable condition with follow-up to PCP. Patient verbally expressed understanding and agreement with care plan. Case discussed with ED attending, Dr. Lucas. Undiagnosed new problem with uncertain prognosis? @ -No Drug Therapy requiring intensive monitoring for toxicity (Heparin, Nitro, Insulin, Cardizem)? @ -No Were any procedures done? @ -No Diagnosis/symptom? @ -Tachycardia Acute, or Chronic, or Acute on Chronic? @ -Acute Uncomplicated (without systemic symptoms) or Complicated (systemic symptoms)? @ -Uncomplicated Side effects of treatment? @ -No Exacerbation, Progression, or Severe Exacerbation? @ -No Poses a threat to life or bodily function? How? (Chest pain, [place], [place], pneumonia, PE, COPD, DKA, ARF, appy, cholecystitis, CVA, Diverticulitis, Homicidal, Suicidal, threat to staff... and all critical care pts) @ -No (Kristina Cruz) Disposition <Nikos Kraft - Last Filed: 12/07/24 17:36> Is patient prescribed a controlled substance at d/c from ED?: No Time of Disposition: 21:10 <Kristina Cruz - Last Filed: 12/08/24 21:24> Clinical Impression: Tachycardia Disposition: HOME SELF-CARE Condition: Stable Additional Instructions: Take medications as prescribed. Follow-up with PCP and/or prefitter doors in the next 1 to 2 days. Return to the ER for any new or worsening concerns. Referrals: Sincere García DO [Primary Care Provider] - 1-2 days
--- NOTE | 2024-12-07 18:16 | XR ---
EXAMINATION TYPE: XR chest 2V DATE OF EXAM: 12/07/2024 6:07 PM COMPARISON: Chest radiographs from 03/03/2015 CLINICAL INDICATION: Male, 64 years old with history of Chest Pain; [facility] TECHNIQUE: XR chest 2V Frontal and lateral views of the chest. FINDINGS: Lungs/Pleura: There is no evidence of pleural effusion, focal consolidation, or pneumothorax. Elevat ed right diaphragm Pulmonary vascularity: Unremarkable. Heart/mediastinum: Cardiomediastinal silhouette is unremarkable. Musculoskeletal: No acute osseous pathology. Right shoulder arthroplasty changes consent was present with skin paco present. IMPRESSION: 1. Elevated right diaphragm possibly due to low lung volumes. Attention on follow-up chest radiograp h. 2. No acute cardiopulmonary disease/process. [facility], , 12/07/2024 6:14 PM
[2024-12-07 18:56] LABS: Basophils % (A) 0 %; Eosinophils % (A) 0 %; HCT 44.4 % (39.0-53.0); HGB 14.5 gm/dL (13.0-17.5); Lymphocytes # (A) 0.7 k/uL (1.0-4.8); Lymphocytes % (A) 6 %; MCH 29.2 pg (25.0-35.0); MCHC 32.6 g/dL (31.0-37.0); MCV 89.5 fL (80.0-100.0); Mean Platelet Volume 7.7; Monocytes # (A) 0.5 k/uL (0-1.0); Monocytes % (A) 4 %; Neutrophils # (A) 11.7 k/uL (1.3-7.7); Neutrophils % (A) 90 %; Platelet Count 287 k/uL (150-450); RBC 4.96 m/uL (4.30-5.90); RDW 13.2 % (11.5-15.5)
[2024-12-07 19:14] LABS: ALT 47 U/L (4-49); AST 49 U/L (17-59); African American GFR (CKD) 77 (>60 ml/min/1.73 sqM); Albumin 4.8 g/dL (3.5-5.0); Alkaline Phosphatase 87 U/L (38-126); Anion Gap 11 mmol/L; Blood Urea Nitrogen 17 mg/dL (9-20); Calcium 9.9 mg/dL (8.4-10.2); Carbon Dioxide 24 mmol/L (22-30); Chloride 105 mmol/L (98-107); Glucose 127 mg/dL (74-99); Magnesium 1.9 mg/dL (1.6-2.3); Non-African American GFR(CKD) 67 (>60 ml/min/1.73 sqM); Potassium 4.6 mmol/L (3.5-5.1); Sodium 140 mmol/L (137-145); Total Bilirubin 0.5 mg/dL (0.2-1.3); Total Protein 7.4 g/dL (6.3-8.2)
[2024-12-07 19:21] LABS: INR 0.9 (<1.2); Prothrombin Time 10.4 sec (10.0-12.5)
[2024-12-07 19:23] LABS: Partial Thromboplastin Time 21.4 sec (22.0-30.0)
[2024-12-07 19:31] VITALS: TEMP 97.6
[2024-12-07] MEDS: ASPIRIN 81 MG PO STA (19:31)
--- NOTE | 2024-12-07 20:13 | CT ---
EXAMINATION TYPE: CT chest angio for PE DATE OF EXAM: 12/07/2024 7:56 PM COMPARISON: 03/03/2015 CLINICAL INDICATION: Male, 64 years old with history of chest tightness/sob/elevated dimer/hx shoulde r sx; Chest tightness/sob/elevated dimer/hx shoulder sx. TECHNIQUE/CONTRAST: CTA scan of the thorax is performed with IV Contrast, patient injected with 100 ml mL of Isovue 370, MIP images are created and reviewed these are created on a separate workstation.. CT DLP: 516.6 mGycm, Automated exposure control for dose reduction was used. FINDINGS: Lungs/Pleura: No evidence of focal consolidation, pleural effusion or pneumothorax. Right basilar ate lectasis Airway: Large airways are patent. Heart: Size within normal limits Vasculature: There is no evidence for a filling defect within the pulmonary vasculature to suggest ac jose antonio pulmonary embolism. The pulmonary artery is of normal size. Mediastinum: No gross evidence of adenopathy. Musculoskeletal: No acute osseous abnormalities, postsurgical changes of the right shoulder and upper extremity with subcutaneous gas. There is intact. Soft Tissues/lymph nodes: Unremarkable. Lower neck: No significant findings. Upper Abdomen: The gallbladder is surgically absent. Right hepatic probable cyst. IMPRESSION: 1. No evidence of pulmonary embolism. 2. Post surgical changes the right upper extremity no evidence for hardware failure. [facility], , 12/07/2024 8:10 PM
[2024-12-07] MEDS: METOPROLOL TARTRATE 5 MG/5 ML VIAL IVP STA (22:02)
[2024-12-07 22:04] VITALS: BP 126/74; PULSE 98; RESP 17
== END 2024-12-07 22:04 | disposition home or self-care (01) ==
LOC: EC 16:59
DX: R00.0 Tachycardia, unspecified (principal); Z91.030 Bee allergy status
CPT/HCPCS: 36415; 93005; 85379; 80053; 83735; 84484; 85025; 85610; 85730; 71046; 71275; 99285; Q9967